=== PATIENT | female | born 1970 | race Caucasian/White ===

== ENCOUNTER 2019-10-04 11:23 | Outpatient (CLI) | payer MEDICAID, SELFPAY ==
--- NOTE | 2019-10-04 | MM_ITS ---
WS: [id number] BILATERAL SCREENING DIGITAL MAMMOGRAM WITH CAD HISTORY: SCREENING COMPARISON: None available. Bilateral CC and MLO views submitted. Computer aided detection analyzed. Breast composition: There are scattered areas of fibroglandular density. No suspicious masses, microc alcifications or architectural distortion. MM/[id number] IMPRESSION: BI-RADS: 1-Negative FOLLOW UP: 1 Year Follow-up
== END 2019-10-04 11:24 | disposition home or self-care (01) ==
LOC: RADSHAW 11:33
PROVIDERS: Family Provider Internal Medicine Medical Oncology; PCP Internal Medicine Medical Oncology; Visit Provider Internal Medicine Medical Oncology
DX: Z12.31 Encounter for screening mammogram for malignant neoplasm of breast (principal)
CPT/HCPCS: 77067

== ENCOUNTER 2019-12-02 12:58 | Outpatient (CLI) | payer MEDICAID, SELFPAY ==
[2019-12-02 14:36] LABS: Basophils % 0.3 %; Eosinophils # 0.1 10^3/uL (0.0-0.8); Eosinophils % 1.3 %; Hematocrit 48.1 % (37.0-47.0); Hemoglobin 14.3 g/dL (11.5-15.3); Lymphocytes # 1.1 10^3/uL (0.8-4.8); Lymphocytes % 14.6 %; Mean Corpuscular HGB Conc 29.7 g/dL (30.0-36.0); Mean Corpuscular Hemoglobin 26.7 pg (28.0-34.0); Mean Corpuscular Volume 89.9 fL (81-99); Mean Platelet Volume 12.3 fL (7.4-10.4); Monocytes # 0.6 10^3/uL (0.2-0.9); Monocytes % 7.4 %; Neutrophils # 5.8 10^3/uL (1.8-7.7); Neutrophils % 75.9 %; Nucleated Red Blood Cells % 0 %; Platelet Count 272 10^3/cmm (130-400); Red Blood Count 5.35 10^6/uL (4.1-5.3); Red Cell Distribution Width 15.6 % (12.1-15.1); White Blood Count 7.7 10^3/uL (4.0-10.0)
[2019-12-02 14:57] LABS: Alanine Aminotransferase < 5 U/L (0-33); Albumin Level 4.1 g/dL (3.5-5.2); Alkaline Phosphatase 122 IU/L (35-105); Anion Gap 16.1 (5-19); Aspartate Amino Transferase 9 U/L (0-32); Blood Urea Nitrogen 11 mg/dL (6-20); Calcium 9.8 mg/dL (8.5-10.5); Carbon Dioxide 24 mmol/L (22-29); Chloride 104 mmol/L (98-107); Globulin 2.5 g/dL (1.3-4.6); Glomerular Filtration Rate 105.8 mL/min (90-130); Glucose 258 mg/dL (65-115); Lactate Dehydrogenase 123 U/L (135-214); Potassium 4.1 mmol/L (3.5-5.1); Sodium 140 mmol/L (136-145); Total Bilirubin 0.4 mg/dL (0.15-1.2); Total Protein 6.6 g/dL (6.6-8.7)
[2019-12-03 09:45] LABS: Estmated Average Glucose 189; Hemoglobin A1C 8.2 % (4.0-6.0)
--- NOTE | 2019-12-04 08:36 | ONC FU_ITS ---
Dr. Canales Patient Follow-Up Note Patient: Kavitha Sue Unit #: [id number]: 1970 Dicatated By: Hi Canales M.D.Date of Visit:Dec 02, 2019 Onc Med Follow-up/Prog Note Chief Complaint: Thrombocytopenia/multisystem degeneration. History of Present Illness: This is a 48 year-old woman whom I previously treated for autoimmune thrombocytopenia. She had presented in 1999 with severe thrombocytopenia. She had a good response to treatment with RhoD and prednisone. She was able to taper off prednisone as of December 2002. During subsequent followup she had just one brief drop in her platelet count, but with spontaneous recovery. Beginning in the early part of 2009 she had a significant decline in her performance status associated with progressive neurologic symptoms. She was seen by Dr. 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 She has been on treatment with carbidopa/levodopa. She became very debilitated as a result of that illness. She has lived with her father, as she was no longer able to function independently. Her other medical illnesses include hypertension, type II diabetes, GERD, and chronic anxiety. She is a nonsmoker. She is seen for a followup visit. In November 2018 she suffered a distal radius and ulna fracture as result of a fall at home. She underwent open reduction and internal fixation for the fracture on 12/19/2018. Because of that injury, she had missed an appointment, and she did not get it rescheduled until now. She continues to have some pain in her left wrist, and she also complains that her hands get stiff. She has pain in her kneecaps. She has very limited activity, and she is mainly bed or chair confined. She does ambulate to the bathroom, but she requires a lift chair to get up. She has good appetite and she has gained weight. She does not have fever or hot flashes. She sometimes has a little sweating at night. She has shortness of breath and she has a hacking cough, mainly at night. She has a little bit of chest pain. She complains of having sour stomach. For the past week or so she has been having some pain in the right upper quadrant area. Bowel function has been adequate with a stool softener. She says her bladder is okay most of the time. She does not complain of headache. She does have dizziness, but not as much. She has no numbness/paresthesia or other focal neurologic symptoms. Medications: Carbidopa-Levodopa 1 Tablet (of 25-100 mg) Oral b.i.d., Cholecalciferol 1 (1000 Units) Tablet Oral daily, [facility] Omeprazole 1 Tablet (of 20 mg) Tablet, enteric coated Oral b.i.d., Metoprolol Tartrate 1 (50 mg) Tablet Oral b.i.d., Ondansetron HCl 1 Tablet (of 4 mg) Oral PRN, Xanax 1 (0.5 mg) Tablet Oral b.i.d. PRN Allergies: Cipro, NONSTEROIDAL ANTI-INFLAMMATORIES, Penicillin V Potassium, and Sulfamethoxazole-Trimethoprim. Review of Systems: Constitutional - Her energy is low. She is mainly sedentary at home. Her appetite is good and her weight is up 10 pounds since her last visit. She has sweating at night. No fever, chills, hot flashes. ECOG score is 3, ENMT - She has sinus congestion/drainage. No mouth sores. No sore throat or difficulty swallowing, Hematologic/Lymphatic - No abnormal bruising or bleeding, Respiratory - She has shortness of breath. She has a nonproductive cough at night. No pleuritic pain or hemoptysis, Cardiovascular - No angina pain. No palpitations, Gastrointestinal - She sometimes feels nauseous. No vomiting. No heartburn or acid reflux. She takes stool softeners to manage her bowels. No blood in the stool or black stools. She has some abdominal pain, Genitourinary (F) - No dysuria or hematuria. No urinary frequency. No urgency or incontinence, Musculoskeletal - She had a fall recently. She has pain in her knees. Her hands get stiff if she doesn't do her exercises, Integumentary - No skin complications, Neurologic - No headache or dizziness. No numbness/paresthesias or other focal neurologic symptoms, Psychiatric - No anxiety or depression. No insomnia. Vital Signs: Performed on Dec 02, 2019 13:08 Height - 64.00 in Weight - 162 lbs (HIGH) BSA - 1.79 sq.m BMI - 27.81 Temperature - 98.6 F Pulse - 80 /min Respiration - 16 /min BP - 124/76 mm(hg) O2 Sat - 95 % (LOW) Pain - 8 Physical Examination: Constitutional - She appears generally weak and chronically ill. She has poor mobility, Eyes - Sclerae nonicteric. Conjunctivae clear, ENMT - Mouth is dry. There are no lesions noted in the oral cavity, Hematologic/Lymphatic - No cervical, clavicular, or axillary adenopathy, Respiratory - Lungs are clear, Cardiovascular - Heart rhythm is regular. There is no murmur, gallop, or rub noted, Abdomen - Soft. Liver and spleen are not enlarged. There is no abdominal mass or ascites noted and there is no inguinal adenopathy, Extremities - No edema, Neurologic - She does not appear to have any focal neurologic deficit. Lab/Imaging: Test performed on Dec 02, 2019 14:15 LDH (Total) 123 U/L Sodium 140 mmol/L Potassium 4.1 mmol/L Chloride 104 mmol/L CO2 24 mmol/L Anion Gap 16.1 BUN 11 mg/dL Creatinine 0.6 mg/dL Cr Clearance (Est) 130.1300 mL/min eGFR 105.8 mL/min Glucose 258 mg/dL Calcium 9.8 mg/dL Protein, Total 6.6 g/dL Albumin 4.1 g/dL Globulin 2.5 g/dL Bilirubin, Total 0.4 mg/dL ALT (SGPT) < 5 U/L AST (SGOT) 9 U/L Alkaline Phosphatase 122 IU/L WBC 7.7 10 3/uL RBC 5.35 10 6/uL HGB 14.3 g/dL HCT 48.1 % MCV 89.9 fL MCH 26.7 pg MCHC 29.7 g/dL RDW 15.6 % Platelet Count 272 10 3/cmm MPV 12.3 fL Neutrophils 5.8 10 3/uL Lymphocytes 1.1 10 3/uL Monocytes 0.6 10 3/uL Eosinophils 0.1 10 3/uL Basophils 0.0 10 3/uL Neutrophil % 75.9 % Lymphocyte % 14.6 % Monocyte % 7.4 % Eosinophil % 1.3 % Basophils % 0.3 % Test performed on Dec 02, 2019 09:00 Hemoglobin A1C % 8.2 % Impression: 1. 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 2. During followup she developed a debilitating neurologic disorder, and she has been chronically ill. 3. I have suspected that she has some associated autonomic neuropathy. Her other medical illnesses include: 4. Hypertension. 5. Type II diabetes. 6. GERD. 7. Chronic anxiety. During followup there was no further recurrence of the autoimmune thrombocytopenia. She experienced a significant decline in her performance status related to the underlying neuromuscular disorder. In November 2018 she underwent open reduction/internal fixation for a left distal radius/ulnar fracture. As result of that injury, she had missed an appointment, and it did not get rescheduled until this visit. During this time, she apparently stopped taking Metformin with resulting increase in her hemoglobin A1c level. She has had further decline in her functional status related to multisystem degeneration. Plan: She remains on observation for the autoimmune thrombocytopenia. She will restart metformin 500 mg twice daily. Her other medications remain the same. I will see her again in 6 months, or sooner as needed. Signed By: Hi Canales M.D. <<Signature on File>>
== END 2019-12-02 12:59 | disposition home or self-care (01) ==
LOC: ONCMED 13:00
PROVIDERS: Family Provider Internal Medicine Medical Oncology; PCP Internal Medicine Medical Oncology; Visit Provider Internal Medicine Medical Oncology
DX: G23.2 Striatonigral degeneration (principal); G90.3 Multi-system degeneration of the autonomic nervous system; D69.3 Immune thrombocytopenic purpura; I10 Essential (primary) hypertension; E11.9 Type 2 diabetes mellitus without complications; K21.9 Gastro-esophageal reflux disease without esophagitis; F41.9 Anxiety disorder, unspecified; Z79.899 Other long term (current) drug therapy; Z79.84 Long term (current) use of oral hypoglycemic drugs
CPT/HCPCS: 80053; 83036; 83615; 85025; 99214

== ENCOUNTER → 2020-03-25 11:46 | Outpatient (BNVA) | payer MEDICAID, SELFPAY | PROVIDERS: Family Provider Internal Medicine Medical Oncology; PCP Internal Medicine Medical Oncology; Visit Provider Orthopaedic Surgery | DX: S52.502A Unspecified fracture of the lower end of left radius, initial encounter for closed fracture (principal); S52.602A Unspecified fracture of lower end of left ulna, initial encounter for closed fracture; X58.XXXA Exposure to other specified factors, initial encounter | CPT/HCPCS: 73110 ==

== ENCOUNTER 2020-06-15 13:25 | Outpatient (CLI) | payer MEDICAID, SELFPAY ==
[2020-06-15 14:35] LABS: Basophils % 0.2 %; Eosinophils # 0.2 10^3/uL (0.0-0.8); Eosinophils % 1.9 %; Hematocrit 47.5 % (37.0-47.0); Hemoglobin 14.1 g/dL (11.5-15.3); Mean Corpuscular HGB Conc 29.7 g/dL (30.0-36.0); Mean Corpuscular Hemoglobin 26.8 pg (28.0-34.0); Mean Corpuscular Volume 90.1 fL (81-99); Mean Platelet Volume 11.9 fL (7.4-10.4); Monocytes # 0.5 10^3/uL (0.2-0.9); Monocytes % 6.1 %; Neutrophils # 6.52 10^3/uL (1.8-7.7); Neutrophils % 79.2 %; Nucleated Red Blood Cells % 0 %; Platelet Count 265 10^3/cmm (130-400); Red Blood Count 5.27 10^6/uL (4.1-5.3); Red Cell Distribution Width 15.1 % (12.1-15.1); White Blood Count 8.2 10^3/uL (4.0-10.0)
[2020-06-15 14:57] LABS: Estmated Average Glucose 232; Hemoglobin A1C 9.7 % (4.0-6.0)
[2020-06-15 15:06] LABS: Alanine Aminotransferase < 5 U/L (0-33); Albumin Level 3.9 g/dL (3.5-5.2); Alkaline Phosphatase 110 IU/L (35-105); Anion Gap 17.1 (5-19); Aspartate Amino Transferase 12 U/L (0-32); Blood Urea Nitrogen 11 mg/dL (6-20); Calcium 8.6 mg/dL (8.5-10.5); Carbon Dioxide 22 mmol/L (22-29); Chloride 105 mmol/L (98-107); Globulin 2.4 g/dL (1.3-4.6); Glomerular Filtration Rate 130.1 mL/min (90-130); Glucose 325 mg/dL (65-115); Osmolality Calculated 299 mOsm/kg (285-295); Potassium 4.1 mmol/L (3.5-5.1); Sodium 140 mmol/L (136-145); Total Bilirubin 0.3 mg/dL (0.15-1.2); Total Protein 6.3 g/dL (6.6-8.7)
--- NOTE | 2020-06-19 18:42 | ONC FU_ITS ---
Dr. Canales Patient Follow-Up Note Patient: Kavitha Sue Unit #: [id number]: 1970 Dicatated By: Hi Canales M.D.Date of Visit:Jun 15, 2020 Onc Med Follow-up/Prog Note Chief Complaint: Thrombocytopenia/multisystem degeneration. History of Present Illness: This is a 49 year-old woman whom I previously treated for autoimmune thrombocytopenia. She had presented in 1999 with severe thrombocytopenia. She had a good response to treatment with RhoD and prednisone. She was able to taper off prednisone as of December 2002. During subsequent followup she had just one brief drop in her platelet count, but with spontaneous recovery. Beginning in the early part of 2009 she had a significant decline in her performance status associated with progressive neurologic symptoms. She was seen by Dr. 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 She has been on treatment with carbidopa/levodopa. She became very debilitated as a result of that illness. She has lived with her father, as she was no longer able to function independently. Her other medical illnesses include hypertension, type II diabetes, GERD, and chronic anxiety. In November 2018 she suffered a distal radius and ulna fracture as result of a fall at home. She underwent open reduction and internal fixation for the fracture on 12/19/2018. She is a nonsmoker. In December 2019 she was found to have type II diabetes with her hemoglobin A1c level significantly elelvated at 8.2%. She started treatment with metformin 500 mg bid. She is seen for a followup visit. She indicates she had stopped the metformin because of diarrhea, but she failed to report this to us. The diarrhea resolved. She has otherwise been feeling about the same. She has very limited activity. She can ambulate short distances with assistance, but she is mainly bed/wheel chair confined and she requires assistance for ADLs. Her appetite has been good. She has not had fever or night sweats. She occasionally has hot flashes. Her breathing has been OK. She has just a little bit of cough. She sometimes has sour stomach. Bowel function has been OK with stool softeners. Bladder function is better with medication. She has been having pain in her knee caps. She has no focal neurologic symtoms. Medications: Carbidopa-Levodopa 1 Tablet (of 25-100 mg) Oral t.i.d., Cholecalciferol 1 (1000 Units) Tablet Oral daily, [facility] Omeprazole 1 Tablet (of 20 mg) Tablet, enteric coated Oral daily, Metoprolol Tartrate 1 (50 mg) Tablet Oral b.i.d., Ondansetron HCl 1 Tablet (of 4 mg) Oral PRN, Xanax 1 (0.5 mg) Tablet Oral b.i.d. PRN Allergies: Cipro, NONSTEROIDAL ANTI-INFLAMMATORIES, Penicillin V Potassium, and Sulfamethoxazole-Trimethoprim. Review of Systems: Constitutional - She has very limited activity. She requires assistance with ADL's. Appetite is good and weight is stable. No fever or night sweats. She occasionally has hot flashes. ECOG score is 3, ENMT - No sinus congestion/drainage. No mouth sores. No sore throat or difficulty swallowing, Hematologic/Lymphatic - No abnormal bruising or bleeding, Respiratory - She occasionally has to take a deep breath. She has a little bit of cough. No pleuritic pain or hemoptysis, Cardiovascular - No angina pain. No palpitations, Gastrointestinal - No nausea or vomiting, but she sometimes has sour stomach. Her constipation is adequately managed. No blood in the stool or black stools, Genitourinary (F) - No dysuria or hematuria. She has urinary frequency, and she has urgency/incontinence, but her bladder function has improved with medication, Musculoskeletal - She has been having pain in her knee caps. She has no other joint or bone pain, Integumentary - No skin rash, Neurologic - No headache. She somtimes has dizziness. No numbness or tingling. No other focal neurologic symptoms, Psychiatric - No anxiety or depression. No insomnia. Vital Signs: Performed on Jun 15, 2020 13:35 Height - 64.00 in Weight - 160.0 lbs (LOW) BSA - 1.78 sq.m BMI - 27.46 Temperature - 98.0 F (LOW) Pulse - 92 /min Respiration - 20 /min BP - 129/86 mm(hg) O2 Sat - 97 % Pain - 7 Physical Examination: Constitutional - She appears generally weak and chronically ill, Eyes - Sclerae nonicteric. Conjunctivae clear, ENMT - Mouth is dry. There are no lesions noted in the oral cavity, Hematologic/Lymphatic - No cervical, clavicular, or axillary adenopathy, Respiratory - Lungs are clear, Cardiovascular - Heart rhythm is regular. There is no murmur, gallop, or rub noted, Abdomen - Soft. Liver and spleen are not enlarged. There is no abdominal mass or ascites noted and there is no inguinal adenopathy, Extremities - No edema, Neurologic - She has poor mobility. She does not appear to have any focal neurologic deficit. Lab/Imaging: Test performed on Jun 15, 2020 14:10 Sodium 140 mmol/L Potassium 4.1 mmol/L Chloride 105 mmol/L CO2 22 mmol/L Anion Gap 17.1 BUN 11 mg/dL Creatinine 0.5 mg/dL Cr Clearance (Est) 152.5100 mL/min eGFR 130.1 mL/min Glucose 325 mg/dL Calcium 8.6 mg/dL Osmolality - Calculated 299 mOsm/kg Protein, Total 6.3 g/dL Albumin 3.9 g/dL Globulin 2.4 g/dL Bilirubin, Total 0.3 mg/dL ALT (SGPT) < 5 U/L AST (SGOT) 12 U/L Alkaline Phosphatase 110 IU/L Hemoglobin A1C % 9.7 % WBC 8.2 10 3/uL RBC 5.27 10 6/uL HGB 14.1 g/dL HCT 47.5 % MCV 90.1 fL MCH 26.8 pg MCHC 29.7 g/dL RDW 15.1 % Platelet Count 265 10 3/cmm MPV 11.9 fL Neutrophils 6.52 10 3/uL Lymphocytes 1.0 10 3/uL Monocytes 0.5 10 3/uL Eosinophils 0.2 10 3/uL Basophils 0.0 10 3/uL Neutrophil % 79.2 % Lymphocyte % 12.0 % Monocyte % 6.1 % Eosinophil % 1.9 % Basophils % 0.2 % NRBC % 0 % Impression: 1. 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 2. During followup she developed a debilitating neurologic disorder, and she has been chronically ill. 3. I have suspected that she has some associated autonomic neuropathy. Her other medical illnesses include: 4. Hypertension. 5. Type II diabetes. 6. GERD. 7. Chronic anxiety. During followup there was no further recurrence of the autoimmune thrombocytopenia. She experienced a significant decline in her performance status related to the underlying neuromuscular disorder. In November 2018 she underwent open reduction/internal fixation for a left distal radius/ulnar fracture. During subsequent follow-up she has been stable clinically, but she has elevated hemoglobin A1c level, consistent with type 2 diabetes, and she was not able to tolerate metformin due to diarrhea. Plan: She remains on observation for the autoimmune thrombocytopenia. She will start glyburide 5 mg bid for the diabetes. Her other medications remain the same. I will recheck lab studies in 3 months. I will see her again in 6 months, or sooner as needed. Signed By: Hi Canales M.D. <<Signature on File>>
== END 2020-06-15 13:26 | disposition home or self-care (01) ==
PROVIDERS: Visit Provider Internal Medicine Medical Oncology
DX: D69.3 Immune thrombocytopenic purpura (principal); G23.2 Striatonigral degeneration; I10 Essential (primary) hypertension; E11.9 Type 2 diabetes mellitus without complications; K21.9 Gastro-esophageal reflux disease without esophagitis; F41.9 Anxiety disorder, unspecified
CPT/HCPCS: 80053; 83036; 85025; 99214

== ENCOUNTER 2020-08-10 12:19 | Outpatient (CLI) | payer MEDICAID, SELFPAY ==
[2020-08-10] MEDS: pneumococcal (23 valent) SDV 0.5 mL IM (12:20)
== END 2020-08-10 12:20 | disposition home or self-care (01) ==
LOC: ONCMED 12:22
PROVIDERS: Visit Provider Internal Medicine Medical Oncology
DX: Z23 Encounter for immunization (principal)
CPT/HCPCS: 90471; 90686; 90732

== ENCOUNTER 2020-12-10 12:02 | Outpatient (CLI) | payer MEDICAID, SELFPAY ==
[2020-12-10 15:32] LABS: Basophils % 0.3 %; Eosinophils # 0.1 10^3/uL (0.0-0.8); Eosinophils % 1.8 %; Hematocrit 48.4 % (37.0-47.0); Hemoglobin 14.3 g/dL (11.5-15.3); Lymphocytes # 0.9 10^3/uL (0.8-4.8); Lymphocytes % 13.8 %; Mean Corpuscular HGB Conc 29.5 g/dL (30.0-36.0); Mean Corpuscular Hemoglobin 26.9 pg (28.0-34.0); Mean Corpuscular Volume 91.1 fL (81-99); Mean Platelet Volume 12.8 fL (7.4-10.4); Monocytes # 0.5 10^3/uL (0.2-0.9); Monocytes % 6.6 %; Neutrophils # 5.26 10^3/uL (1.8-7.7); Neutrophils % 76.9 %; Nucleated Red Blood Cells % 0 %; Platelet Count 256 10^3/cmm (130-400); Red Blood Count 5.31 10^6/uL (4.1-5.3); Red Cell Distribution Width 14.9 % (12.1-15.1); White Blood Count 6.8 10^3/uL (4.0-10.0)
[2020-12-10 15:44] LABS: Estmated Average Glucose 174; Hemoglobin A1C 7.7 % (4.0-6.0)
[2020-12-10 16:17] LABS: Alanine Aminotransferase < 5 U/L (0-33); Albumin Level 3.4 g/dL (3.5-5.2); Alkaline Phosphatase 109 IU/L (35-105); Aspartate Amino Transferase 12 U/L (0-32); Blood Urea Nitrogen 16 mg/dL (6-20); Calcium 8.9 mg/dL (8.5-10.5); Carbon Dioxide 24 mmol/L (22-29); Chloride 103 mmol/L (98-107); Globulin 2.5 g/dL (1.3-4.6); Glucose 203 mg/dL (65-115); Osmolality Calculated 295 mOsm/kg (285-295); Sodium 139 mmol/L (136-145); Thyroid Stimulating Hormone 2.52 uIU/mL (0.27-4.20); Total Bilirubin 0.3 mg/dL (0.15-1.2); Total Protein 5.9 g/dL (6.6-8.7)
== END 2020-12-10 12:03 | disposition home or self-care (01) ==
LOC: ONCMED 12-11 07:59
PROVIDERS: Visit Provider Internal Medicine Medical Oncology
DX: D69.6 Thrombocytopenia, unspecified (principal); E11.9 Type 2 diabetes mellitus without complications; R53.83 Other fatigue
CPT/HCPCS: 80053; 83036; 84443; 85025

== ENCOUNTER 2020-12-14 06:04 | Outpatient (CLI) | payer MEDICAID, SELFPAY ==
--- NOTE | 2020-12-16 07:20 | ONC FU_ITS ---
Dr. Canales Patient Follow-Up Note Patient: Kavitha Sue Unit #: [id number]: 1970 Dicatated By: Hi Canales M.D.Date of Visit:Dec 14, 2020 Onc Med Follow-up/Prog Note Chief Complaint: Thrombocytopenia/multisystem degeneration. History of Present Illness: This is a 50 year-old woman whom I previously treated for autoimmune thrombocytopenia. She had presented in 1999 with severe thrombocytopenia. She had a good response to treatment with RhoD and prednisone. She was able to taper off prednisone as of December 2002. During subsequent followup she had just one brief drop in her platelet count, but with spontaneous recovery. Beginning in the early part of 2009 she had a significant decline in her performance status associated with progressive neurologic symptoms. She was seen by Dr. 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 She has been on treatment with carbidopa/levodopa. She became very debilitated as a result of that illness. She has lived with her father, as she was no longer able to function independently. Her other medical illnesses include hypertension, type II diabetes, GERD, and chronic anxiety. In November 2018 she suffered a distal radius and ulna fracture as result of a fall at home. She underwent open reduction and internal fixation for the fracture on 12/19/2018. She is a nonsmoker. She is seen for a followup visit. She continues to have very limited activity. She ambulates short distances with a walker, but she is mostly sedentary. Her ECOG score is 3. Her appetite has been okay. She has not had fever or night sweats. She has occasional hot flashes. She has not had sore mouth or throat and she reports no difficulty swallowing. She has occasional cough and she sometimes has shortness of breath. She does not complain of chest pain. She tends to have a sour stomach. Bowel function has been adequate with stool softeners. Her bladder function lately has been okay. She does report that her joints hurt, especially her knees. She does not complain of headache or dizziness. She has a little bit of numbness/tingling in her feet. Medications: Carbidopa-Levodopa 1 Tablet (of 25-100 mg) Oral t.i.d., Cholecalciferol 1 (1000 Units) Tablet Oral daily, [facility] Omeprazole 1 Tablet (of 20 mg) Tablet, enteric coated Oral daily, Metoprolol Tartrate 1 (50 mg) Tablet Oral b.i.d., Ondansetron HCl 1 Tablet (of 4 mg) Oral PRN, Xanax 1 (0.5 mg) Tablet Oral b.i.d. PRN Allergies: Cipro, NONSTEROIDAL ANTI-INFLAMMATORIES, Penicillin V Potassium, and Sulfamethoxazole-Trimethoprim. Vital Signs: Performed on Dec 14, 2020 14:31 Height - 64.00 in Weight - 149.4 lbs (LOW) BSA - 1.73 sq.m BMI - 25.64 Temperature - 98.2 F (LOW) Pulse - 84 /min Respiration - 18 /min BP - 126/83 mm(hg) O2 Sat - 95 % (LOW) Pain - 0 Fatigue - 5 Physical Examination: Constitutional - She appears chronically ill, Eyes - Sclerae nonicteric. Conjunctivae clear, ENMT - Mouth is dry. There are no lesions noted in the oral cavity, Hematologic/Lymphatic - No cervical, clavicular, or axillary adenopathy, Respiratory - Lungs sound clear, Cardiovascular - Heart rhythm is regular. There is a II/ systolic murmur. There is no gallop or rub noted, Abdomen - Soft. Liver and spleen are not enlarged. There is no abdominal mass or ascites noted and there is no inguinal adenopathy, Extremities - No edema, Neurologic - She is generally weak and she has poor mobility. She does not appear to have any focal neurologic deficit. Lab/Imaging: Test performed on Dec 10, 2020 12:02 Sodium 139 mmol/L TSH 2.52 uIU/mL Potassium 4.0 mmol/L Chloride 103 mmol/L Est Avg Glucose (eAG) 174 mg/dL CO2 24 mmol/L Anion Gap 16.0 BUN 16 mg/dL Creatinine 0.6 mg/dL Cr Clearance (Est) 125.6600 mL/min eGFR 105.0 mL/min Glucose 203 mg/dL Osmolality - Calculated 295 mOsm/kg Calcium 8.9 mg/dL Protein, Total 5.9 g/dL Albumin 3.4 g/dL Globulin 2.5 g/dL Bilirubin, Total 0.3 mg/dL ALT (SGPT) < 5 U/L AST (SGOT) 12 U/L Alkaline Phosphatase 109 IU/L Hemoglobin A1C % 7.7 % WBC 6.8 10 3/uL RBC 5.31 10 6/uL HGB 14.3 g/dL HCT 48.4 % MCV 91.1 fL MCH 26.9 pg MCHC 29.5 g/dL RDW 14.9 % Platelet Count 256 10 3/cmm MPV 12.8 fL Neutrophils 5.26 10 3/uL Lymphocytes 0.9 10 3/uL Monocytes 0.5 10 3/uL Eosinophils 0.1 10 3/uL Basophils 0.0 10 3/uL Neutrophil % 76.9 % Lymphocyte % 13.8 % Monocyte % 6.6 % Eosinophil % 1.8 % Basophils % 0.3 % NRBC % 0 % Problem List: 1. 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 2. 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 3. Hypertension. 4. Type II diabetes. 5. GERD. 6. Chronic anxiety. Problems Addressed with this Encounter and Plan: 1. 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 She remains on observation for the autoimmune thrombocytopenia. 2. During followup she developed a debilitating neurologic disorder, and she has been chronically ill. 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 I have suspected that she also has some associated autonomic neuropathy. She has been on symptomatic management with carbidopa/levodopa. She has continued to show gradual decline in her general condition. She remains on symptomatic management in the care of her father. I will see her for a follow-up visit in 6 months, or sooner as needed. 3. Hypertension. She has had good blood pressure control with metoprolol, which she will continue at 50 mg twice daily. 4. Type 2 diabetes. Her hemoglobin A1c is just slightly high, and it is trending downward. She has been on treatment with glyburide, she had poor tolerance for Metformin, even at a relatively low dosage. She will continue glyburide 5 mg twice daily. Her hemoglobin A1c will be repeated in 3 months. Signed By: Hi Canales M.D. <<Signature on File>>
== END 2020-12-14 06:05 | disposition home or self-care (01) ==
LOC: ONCMED 06:06
PROVIDERS: Visit Provider Internal Medicine Medical Oncology
DX: D69.3 Immune thrombocytopenic purpura (principal); G90.3 Multi-system degeneration of the autonomic nervous system; I10 Essential (primary) hypertension; E11.9 Type 2 diabetes mellitus without complications; Z79.52 Long term (current) use of systemic steroids; Z79.84 Long term (current) use of oral hypoglycemic drugs
CPT/HCPCS: 99214

== ENCOUNTER 2021-04-13 13:58 | Outpatient (CLI) | payer MEDICAID, SELFPAY ==
--- NOTE | 2021-04-13 14:03 | MM_ITS ---
WS: [id number] BILATERAL DIGITAL SCREENING MAMMOGRAPHY WITH CAD CLINICAL INFORMATION: SCREENING HISTORY: Screening mammogram. No current complaints. COMPARISON: October 04, 2019 TECHNIQUE: Bilateral CC and MLO views. FINDINGS: Scattered fibroglandular densities bilaterally. Stable lucent centered calcifications. No suspicious focal mass, asymmetry, calcifications, or architectural distortion. No evidence of malignancy. MM/[id number] IMPRESSION: BI-RADS: 2-Benign FOLLOW UP: 1 Year Follow-up Recommend return to annual screening mammography.
== END 2021-04-13 13:59 | disposition home or self-care (01) ==
LOC: RADSHAW 14:02
PROVIDERS: Visit Provider Internal Medicine Medical Oncology
DX: Z12.31 Encounter for screening mammogram for malignant neoplasm of breast (principal)
CPT/HCPCS: 77067

== ENCOUNTER → 2021-06-15 11:33 | Outpatient (BNVA) | payer MEDICAID, SELFPAY | PROVIDERS: Visit Provider Internal Medicine Medical Oncology | DX: D69.3 Immune thrombocytopenic purpura (principal); G23.2 Striatonigral degeneration | CPT/HCPCS: 80053; 85025 ==

== ENCOUNTER 2021-06-16 12:33 | Outpatient (CLI) | payer MEDICAID, SELFPAY ==
[2021-06-16 14:40] LABS: Estmated Average Glucose 183
--- NOTE | 2021-06-16 19:28 | ONC FU_ITS ---
Dr. Canales Patient Follow-Up Note Patient: Kavitha Sue Unit #: [id number]: 1970 Dicatated By: Hi Canales M.D.Date of Visit:Jun 16, 2021 Onc Med Follow-up/Prog Note Chief Complaint: Thrombocytopenia/multisystem degeneration. History of Present Illness: This is a 50 year-old woman whom I previously treated for autoimmune thrombocytopenia. During follow-up she developed a neurologic disorder consistent with multisystem degeneration. She had presented in 1999 with severe thrombocytopenia. She had a good response to treatment with RhoD and prednisone. She was able to taper off prednisone as of December 2002. During subsequent followup she had just one brief drop in her platelet count, but with spontaneous recovery. Beginning in the early part of 2009 she had a significant decline in her performance status associated with progressive neurologic symptoms. She was seen by Dr. 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 She has been on treatment with carbidopa/levodopa. She became very debilitated as a result of that illness. She has lived with her father, as she was no longer able to function independently. Her other medical illnesses include hypertension, type II diabetes, GERD, and chronic anxiety. In November 2018 she suffered a distal radius and ulna fracture as result of a fall at home. She underwent open reduction and internal fixation for the fracture on 12/19/2018. She is a nonsmoker. She is seen for a followup visit. She has not been feeling good generally. She says she is tired by afternoon. She continues to have very limited activity, and she has only minimal ambulation at this point. She complains that her kneecaps hurt a lot, and she also has been having pain in both hips, starting in the right hip and then moving to the left. Her ECOG score is 3. She still has good appetite. She has not had fever or night sweats. She occasionally has hot flashes. She has some sinus drainage and she thinks she may have a bad tooth. She sometimes has cough. Her breathing has been okay, and she has not been having chest pain. She has no GI complaints. Bowel function has been adequate with a stool softener. Her bladder function is better. She does not complain of headache or dizziness. She occasionally has numbness in her feet. Medications: Carbidopa-Levodopa 1 Tablet (of 25-100 mg) Oral t.i.d., Cholecalciferol 1 (1000 Units) Tablet Oral daily, [facility] Omeprazole 1 Tablet (of 20 mg) Tablet, enteric coated Oral daily, glyBURIDE 1 Tablet (of 5 mg) Oral b.i.d., Metoprolol Tartrate 1 (50 mg) Tablet Oral b.i.d., Ondansetron HCl 1 Tablet (of 4 mg) Oral PRN, Xanax 1 (0.5 mg) Tablet Oral b.i.d. PRN Allergies: Cipro, NONSTEROIDAL ANTI-INFLAMMATORIES, Penicillin V Potassium, and Sulfamethoxazole-Trimethoprim. Vital Signs: Performed on Jun 16, 2021 13:13 Height - 64.00 in Temperature - 97.2 F (LOW) Pulse - 76 /min Respiration - 18 /min BP - 122/88 mm(hg) O2 Sat - 99 % Pain - 6 Fatigue - 0 Physical Examination: Constitutional - She appears chronically ill, Eyes - Sclerae nonicteric. Conjunctivae clear, ENMT - No lesions noted in the oral cavity, Hematologic/Lymphatic - No cervical, clavicular, or axillary adenopathy, Respiratory - Lungs sound clear, Cardiovascular - Heart rhythm is regular. There is a II/ systolic murmur. There is no gallop or rub noted, Abdomen - Soft. Liver and spleen are not enlarged. There is no abdominal mass or ascites noted and there is no inguinal adenopathy, Extremities - No edema. 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 She does not appear to have any focal neurologic deficit. Lab/Imaging: CBC shows hemoglobin 13.8 g, white blood cell count 7400, and platelet count 267,000. Comprehensive metabolic profile is unremarkable except for elevated nonfasting blood sugar 219 mg/dL. Her hemoglobin A1c has increased slightly to 8.0%. Problem List: 1. 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 2. 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 3. Hypertension. 4. Type II diabetes. 5. GERD. 6. Chronic anxiety. Problems Addressed with this Encounter and Plan: 1. 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 She remains on observation for the autoimmune thrombocytopenia. 2. 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 By clinical evaluation she also appeared to have some associated autonomic neuropathy. She has been on symptomatic management with carbidopa/levodopa. She has had a gradual decline in her general condition to the point that she now is virtually nonambulatory. She remains on symptomatic management with carbidopa/levodopa. The dosage remains the same. I will see her for a follow-up visit in 6 months. 3. Hypertension. She has had good blood pressure control with metoprolol, which she will continue at 50 mg twice daily. 4. Type 2 diabetes. Her hemoglobin A1c has increased since her last visit. She will require further adjustment in her treatment regimen. Signed By: Hi Canales M.D. <<Signature on File>>
== END 2021-06-16 12:34 | disposition home or self-care (01) ==
LOC: ONCMED 12:37
PROVIDERS: Visit Provider Internal Medicine Medical Oncology
DX: D69.6 Thrombocytopenia, unspecified (principal); G90.3 Multi-system degeneration of the autonomic nervous system; I10 Essential (primary) hypertension; E11.9 Type 2 diabetes mellitus without complications; K21.9 Gastro-esophageal reflux disease without esophagitis; F41.8 Other specified anxiety disorders; Z79.899 Other long term (current) drug therapy; Z79.84 Long term (current) use of oral hypoglycemic drugs
CPT/HCPCS: 83036; 99214

== ENCOUNTER → 2021-12-14 11:03 | Outpatient (BNVA) | payer MEDICAID, SELFPAY | PROVIDERS: Visit Provider Internal Medicine Medical Oncology | DX: D69.3 Immune thrombocytopenic purpura (principal); G23.2 Striatonigral degeneration; I10 Essential (primary) hypertension | CPT/HCPCS: 80053; 83036; 85025 ==

== ENCOUNTER 2021-12-15 13:12 | Outpatient (CLI) | payer MEDICAID, SELFPAY ==
--- NOTE | 2021-12-17 09:40 | ONC FU_ITS ---
Dr. Canales Patient Follow-Up Note Patient: Kavitha Sue Unit #: [id number]: 1970 Dicatated By: Hi Canales M.D.Date of Visit:Dec 15, 2021 Onc Med Follow-up/Prog Note Chief Complaint: Thrombocytopenia/multisystem degeneration. History of Present Illness: This is a 51 year-old woman whom I previously treated for autoimmune thrombocytopenia. During follow-up she developed a neurologic disorder consistent with multisystem degeneration. She had presented in 1999 with severe thrombocytopenia. She had a good response to treatment with RhoD and prednisone. She was able to taper off prednisone as of December 2002. During subsequent followup she had just one brief drop in her platelet count, but with spontaneous recovery. Beginning in the early part of 2009 she had a significant decline in her performance status associated with progressive neurologic symptoms. She was seen by Dr. 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 She has been on treatment with carbidopa/levodopa. She became very debilitated as a result of that illness. She has lived with her father, as she was no longer able to function independently. Her other medical illnesses include hypertension, type II diabetes, GERD, and chronic anxiety. In November 2018 she suffered a distal radius and ulna fracture as result of a fall at home. She underwent open reduction and internal fixation for the fracture on 12/19/2018. She is a nonsmoker. She is seen for a followup visit. She has been feeling a little better lately, though she continues to have very limited activity. ECOG score is 3. She has good appetite. She has no fever, night sweats, or hot flashes. She has not had sore mouth or throat. She has just occasional cough. She does have some shortness of breath, but her breathing overall is better. She still occasionally has chest pain. She currently has no GI complaints. Bowel function has been adequate with a stool softener. Bladder function also has been okay. She has pain in both knees, which is chronic. She does not complain of headache. She reports improvement in her dizziness. She has no numbness/paresthesia or other focal neurologic symptoms. Medications: Carbidopa-Levodopa 1 Tablet (of 25-100 mg) Oral t.i.d., Cholecalciferol 1 (1000 Units) Tablet Oral daily, [facility] Omeprazole 1 Tablet (of 20 mg) Tablet, enteric coated Oral daily, glyBURIDE 1 Tablet (of 7.5 mg) Oral b.i.d., Metoprolol Tartrate 1 (50 mg) Tablet Oral b.i.d., Ondansetron HCl 1 Tablet (of 4 mg) Oral PRN, Xanax 1 (0.5 mg) Tablet Oral b.i.d. PRN Allergies: Cipro, NONSTEROIDAL ANTI-INFLAMMATORIES, Penicillin V Potassium, and Sulfamethoxazole-Trimethoprim. Vital Signs: Performed on Dec 15, 2021 13:35 Height - 64.00 in Weight - 140.4 lbs (LOW) BSA - 1.68 sq.m BMI - 24.10 Temperature - 98.1 F (LOW) Pulse - 80 /min Respiration - 16 /min BP - 129/82 mm(hg) O2 Sat - 99 % Pain - 6 Fatigue - 6 Physical Examination: Constitutional - She appears chronically ill, Eyes - Sclerae nonicteric. Conjunctivae clear, ENMT - No lesions noted in the oral cavity, Hematologic/Lymphatic - No cervical, clavicular, or axillary adenopathy, Respiratory - Lungs sound clear, Cardiovascular - Heart rhythm is regular. There is a II/ systolic murmur. There is no gallop or rub noted, Abdomen - Soft. Liver and spleen are not enlarged. There is no abdominal mass or ascites noted and there is no inguinal adenopathy, Extremities - There is mild lower extremity edema, worse on the left. 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 She does not appear to have any focal neurologic deficit. Lab/Imaging: CBC shows hemoglobin of 15.2 g with hematocrit 50.8%. The white blood cell count was 5200 and the platelet count was normal at 253,000. Comprehensive metabolic profile showed normal renal function with BUN 12 and creatinine 0.5 mg/dL. The alkaline phosphatase was slightly elevated at 109/105 IU/L. The bilirubin and the other liver enzymes were normal. Hemoglobin A1c level was up slightly at 8.2%. Problem List: 1. 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 2. 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 3. Hypertension. 4. Type II diabetes. 5. GERD. 6. Chronic anxiety. Problems Addressed with this Encounter and Plan: 1. 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 She remains on observation for the autoimmune thrombocytopenia. 2. 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 By clinical evaluation she also appeared to have some associated autonomic neuropathy. She has been on symptomatic management with carbidopa/levodopa. She has had a gradual decline in her general condition to the point that she now is virtually nonambulatory. She remains on symptomatic management with carbidopa/levodopa. The dosage remains the same. I will see her for a follow-up visit in 6 months. 3. Hypertension. She has had good blood pressure control with metoprolol, which she will continue at 50 mg twice daily. 4. Type 2 diabetes. There has a slight further increase in her hemoglobin A1c, and she will require further adjustment in her treatment regimen. Signed By: Hi Canales M.D. <<Signature on File>>
== END 2021-12-15 13:13 | disposition home or self-care (01) ==
LOC: ONCMED 13:17
PROVIDERS: Visit Provider Internal Medicine Medical Oncology
DX: D69.3 Immune thrombocytopenic purpura (principal); I10 Essential (primary) hypertension; E11.9 Type 2 diabetes mellitus without complications; G32.0 Subacute combined degeneration of spinal cord in diseases classified elsewhere; K21.9 Gastro-esophageal reflux disease without esophagitis; F41.9 Anxiety disorder, unspecified; Z79.52 Long term (current) use of systemic steroids; Z79.899 Other long term (current) drug therapy
CPT/HCPCS: 99214

== ENCOUNTER → 2022-01-25 13:12 | Outpatient (BNVA) | payer MEDICAID, SELFPAY | PROVIDERS: PCP Internal Medicine Medical Oncology; Referring Provider Internal Medicine Medical Oncology; Visit Provider Surgery | DX: Z12.11 Encounter for screening for malignant neoplasm of colon (principal) | CPT/HCPCS: 99203 ==

== ENCOUNTER → 2022-06-22 10:53 | Outpatient (BNVA) | payer MEDICAID, SELFPAY | PROVIDERS: PCP Internal Medicine Medical Oncology; Visit Provider Nurse Practitioner | DX: E11.65 Type 2 diabetes mellitus with hyperglycemia (principal) | CPT/HCPCS: 80053; 80061; 81003; 83036; 84443; 85025 ==

== ENCOUNTER 2022-09-19 14:02 | Outpatient (CLI) | payer MEDICAID, SELFPAY ==
--- NOTE | 2022-09-19 14:06 | MM_ITS ---
WS: [id number] BILATERAL 2D TOMOSYNTHESIS DIGITAL SCREENING MAMMOGRAPHY WITH CAD CLINICAL INFORMATION: SCREENING HISTORY: Screening mammogram. No current complaints. COMPARISON: April 13, 2021 and 2019 TECHNIQUE: Bilateral CC and MLO views. FINDINGS: Scattered fibroglandular densities bilaterally. Increasing asymmetric density upper outer LEFT breast best seen on the MLO view. Recommend spot compression views and ultrasound if persistent in further evaluation. RIGHT breast is unremarkable and unchanged. MM/[id number] IMPRESSION: BI-RADS: 0-Incomplete: Need additional imaging evaluation FOLLOW UP: Need Additional Imaging Recommend LEFT breast diagnostic mammography with spot compression views and ul trasound if persistent.
== END 2022-09-19 14:03 | disposition home or self-care (01) ==
LOC: RAD 14:02
PROVIDERS: PCP Nurse Practitioner; Visit Provider Nurse Practitioner
DX: Z12.31 Encounter for screening mammogram for malignant neoplasm of breast (principal)
CPT/HCPCS: 77067

== ENCOUNTER 2022-10-14 14:38 | Outpatient (CLI) | payer MEDICAID, SELFPAY ==
--- NOTE | 2022-10-14 14:49 | MM_ITS ---
WS: [id number] LEFT 3D TOMOSYNTHESIS DIGITAL MAMMOGRAPHY WITH CAD CLINICAL INFORMATION: R92.2 - Inconclusive mammogra COMPARISON: April 13, 2021 TECHNIQUE: 3 views of the left breast were obtained. FINDINGS: Scattered fibroglandular densities of the left breast. Again seen is the slightly spiculated asymmetr ic density upper quadrant LEFT breast posterior depth. This persists on spot compression views. Ultra sound is pending. ULTRASOUND BREAST LEFT TECHNIQUE: Ultrasound left breast focused area of concern. CLINICAL INFORMATION: R92.2 - Inconclusive mammogram FINDINGS: Ultrasound LEFT breast 2:00 position demonstrates an irregular hypoechoic shadowing lesion with a anahi id appearance measuring 1.1 x 1.1 x 0.8 cm suspicious for neoplasm. This is 6 cm from the nipple. Rec ommend further evaluation with ultrasound-guided biopsy. No other abnormalities. IMPRESSION: MM/[id number] BI-RADS: 4-Suspicious Finding-Biopsy Should Be Considered FOLLOW UP: US Guided Biopsy Recommended Recommend ultrasound-guided biopsy irregular solid LEFT breast lesion
== END 2022-10-14 14:39 | disposition home or self-care (01) ==
LOC: RAD 14:38
PROVIDERS: PCP Nurse Practitioner; Visit Provider Nurse Practitioner
DX: R92.2 Inconclusive mammogram (principal); N64.9 Disorder of breast, unspecified
CPT/HCPCS: 76642; 77065

== ENCOUNTER → 2022-11-23 08:52 | Outpatient (BNVA) | payer MEDICAID, SELFPAY | PROVIDERS: PCP Nurse Practitioner; Visit Provider Nurse Practitioner | DX: E11.65 Type 2 diabetes mellitus with hyperglycemia (principal); E55.9 Vitamin D deficiency, unspecified | CPT/HCPCS: 80053; 80061; 82306; 83036; 85025 ==

== ENCOUNTER 2022-12-13 20:51 | Emergency (ER) | payer MEDICAID, SELFPAY ==
[2022-12-13 20:54] VITALS: BMI 25.7
--- NOTE | 2022-12-13 20:54 | ED_ITS ---
HPI - Chest Pain General: Chief Complaint: Chest Pain Stated Complaint: CP Time Seen by Provider: 12/13/22 20:54 History of Present Illness: Ms. Sue is a 52-year-old lady with complex past medical history including autoimmune thrombocytopenia history, diabetes, Parkinson's presenting to the emergency department for chest pain. She reports onset of symptoms approximately 2 hours ago while eating though denies any specific choking event or provoking event. She notes substernal chest pain associated with nausea and diaphoresis. EMS administered Zofran and fentanyl with some improvement. Intensity symptoms is moderate. Course has persisted. Does report history of similar. No other specific changes in health, exacerbating, or alleviating factors identified. Onset (ago): hour(s) Timing of current episode: constant Prior episodes: Yes Onset: after eating Pain location: substernal Severity: moderate Quality: heaviness and sharp Relieving factors: nothing Exacerbating factors: nothing Associated symptoms: Reports diaphoresis, dyspnea and nausea Review of Systems General: Reports: 10 or more systems reviewed and unremarkable except in HPI and below Const: Reports: diaphoresis Resp: Reports: dyspnea GI: Reports: nausea PFSH ED PFSH: Medical History Anxiety Autoimmune thrombocytopenia Bradykinesia Closed fracture distal radius and ulna DOS: 12/19/18 ORIF left distal radius and ORIF with percutaneous pinning ulnar styloid Constipation, slow transit Diabetes mellitus with hyperglycemia Hyperglycemia Multi-system degeneration of autonomic nervous system Parkinson disease Surgical History History of surgery on left wrist Family History Other Cancer Chronic kidney disease (CKD) Diabetes Family history of premature coronary artery disease Hypertension Denies family history of Stroke Social History Smoking and tobacco status: never smoked Second hand smoke exposure: No Smoking risk assessment/counseling performed?: No Alcohol intake: never Desire information about alcohol rehabilitation?: No Counseling given: No Desire information about substance/drug rehabilitation?: No Counseling given: No Adopted: No Caregiver/support person: Yes (Dad and Brother) Lives independently: No Housing: Assisted Living Facility Marital status: Number of children: 0 Number of grandchildren: 0 Highest education level completed: High School Graduate service: No Current occupational status: disabled Current occupational exposures/hazards: No Pets and animals: Yes Pets & animals: cat(s) Current gender identity: Female Physical Exam Const: COMMON NORMALS: alert GENERAL APPEARANCE: cooperative and well developed HENMT: COMMON NORMALS: normocephalic and atraumatic HEAD & SCALP: normocephalic and atraumatic THROAT: posterior oropharynx normal Eye: COMMON NORMALS: conjunctivae normal CONJUNCTIVA: Yes conjunctivae normal SCLERA: sclerae normal Neck/C-Spine: COMMON NORMALS: supple GENERAL: Yes trachea midline Resp: COMMON NORMALS: clear to auscultation bilaterally EFFORT & INSPECTION: Yes able to speak in complete sentences AUSCULTATION: clear to auscultation bilaterally Cardio: COMMON NORMALS: regular rate and regular rhythm RATE: regular rate RHYTHM: regular rhythm GI: COMMON NORMALS: Soft to palpation PALPATION: Yes Soft to palpation and No Tenderness to palpation present (GI) Extremity: GENERAL: Yes normal exam except as noted and No edema Neuro: COMMON NORMALS: moves all extremities SENSORIUM/ORIENTATION: Yes alert and No Orientation impaired Psych: COMMON NORMALS: mental status grossly normal and Normal thought process present THOUGHT PROCESS: Normal thought process present Course Vital Signs: Vital signs: Vital Signs Temperature 97.6 F 12/13/22 21:03 Pulse Rate 109 H 12/14/22 00:45 Respiratory Rate 16 12/14/22 00:45 Blood Pressure 124/85 12/14/22 00:45 Pulse Oximetry 99 12/14/22 00:45 Oxygen Delivery Me thod 12/14/22 00:45 MDM - Chest Pain Medical Decision Making 52-year-old lady with history of diabetes presenting to the emergency department for chest pain. EKG demonstrates sinus tachycardia with nonspecific ST segment abnormalities and short MA interval, normal axis, no STEMI. Labs with only minimal leukocytosis, normal hemoglobin and platelet count. Metabolic panel with perhaps minimal evidence of dehydration. Negative range 2- hour delta troponin. Chest x-ray with mild pulmonary vascular congestion, no lobar consolidation or pneumothorax. Most likely etiology of patient's symptoms is unspecified chest pain. The results of ED evaluation were discussed with the patient including possible disposition options. I discussed risk stratification by heart score and estimated risk of major adverse cardiac events. The patient wishes to proceed with outpatient management. She does not want to have a stress test and therefore I will message case management for cardiology follow-up instead for further discussion regarding testing. I discussed prescriptions and/or symptomatic cares (if applicable) including appropriate and responsible use, followup plan, and return precautions. The patient verbalized understanding and felt safe for discharge. Medical Records I reviewed the patient's medical records. Lab Data I reviewed the patient's lab results. 12/13/22 21:37 12/13/22 21:37 Radiology Impressions Chest X-Ray 12/13/22 21:05 IMPRESSION: 1. Cardiomegaly and mild pulmonary vascular congestion. 2. Bibasilar atelectasis. Laboratory Results WBC 10.1 10^3/uL (4.0-10.0) H 12/13/22 21:37 RBC 5.30 10^6/uL (4.1-5.3) 12/13/22 21:37 Hgb 14.5 g/dL (11.5-15.3) 12/13/22 21:37 Hct 48.1 % (37.0-47.0) H 12/13/22 21:37 MCV 90.8 fl (81-99) 12/13/22 21: MCH 27.4 pg (28.0-34.0) L 12/13/22 21:37 MCHC 30.1 g/dL (30.0-36.0) 12/13/22 21: RDW 15.3 % (12.1-15.1) H 12/13/22 21:37 Plt Count 180 10^3/cmm (130-400) 12/13/22 21:37 MPV 13.5 fL (7.4-10.4) H 12/13/22 21:37 Neut % (Auto) 82.0 % 12/13/22 21: Lymph % (Auto) 9.7 % 12/13/22 21:37 [place] % (Auto) 6.9 % 12/13/22 21: Eos % (Auto) 0.5 % 12/13/22 21: Baso % (Auto) 0.3 % 12/13/22 21: Neut # (Auto) 8.25 10^3/uL (1.8-7.7) H 12/13/22 21:37 Lymph # (Auto) 1.0 10^3/uL (0.8-4.8) 12/13/22 21:37 [place] # (Auto) 0.7 10^3/uL (0.2-0.9) 12/13/22 21:37 Eos # (Auto) 0.1 10^3/uL (0.0-0.8) 12/13/22 21:37 Baso # (Auto) 0.0 10^3/uL (0.0-0.1) 12/13/22 21:37 Nucleated RBC % (auto) 0 % 12/13/22 21:37 Nucleated RBCs # 0.0 /100WBC 12/13/22 21:37 D-Dimer <= 0.27 ug/mIFEU (0-0.59) 12/13/22 21:37 Sodium 143 mmol/L (136-145) 12/13/22 21:37 Potassium 4.4 mmol/L (3.5-5.1) 12/13/22 21:37 Chloride 104 mmol/L (98-107) 12/13/22 21:37 Carbon Dioxide 23 mmol/L (22-29) 12/13/22 21:37 Anion Gap 20.4 (5-19) H 12/13/22 21:37 BUN 17 mg/dL (6-20) 12/13/22 21:37 Creatinine 0.7 mg/dL (0.5-0.9) 12/13/22 21:37 GFR Calculation 87.2 mL/min (90-130) L 12/13/22 21:37 Glucose 191 mg/dL (65-115) H 12/13/22 21:37 Calculated Osmolality 303 mOsm/kg (285-295) H 12/13/22 21:37 Calcium 9.1 mg/dL (8.5-10.5) 12/13/22 21:37 Total Bilirubin 0.7 mg/dL (0.15-1.2) 12/13/22 21:37 AST 9 U/L (0-32) 12/13/22 21:37 ALT < 5 U/L (0-33) 12/13/22 21:37 Alkaline Phosphatase 120 U/L (35-105) H 12/13/22 21:37 Troponin T Baseline 9 ng/L (0-10) 12/13/22 21:37 Troponin T 120 Minute 8.09 ng/L (0-10) 12/13/22 23:47 Delta Troponin T -0.91 ABS# (0-10) L 12/13/22 23:47 NT-Pro-B Natriuret Pep 153 pg/mL (0-125) H 12/13/22 21:37 Total Protein 5.9 g/dL (6.6-8.7) L 12/13/22 21:37 Albumin 3.7 g/dL (3.5-5.2) 12/13/22 21:37 Globulin 2.2 g/dL (1.3-4.6) 12/13/22 21:37 Lipase 27 U/L (13-60) 12/13/22 21:37 Discharge Plan Discharge Patient Disposition: Home Clinical Impression: Chest pain, Tachycardia, Dehydration, mild Condition: Stable Prescriptions: No Action All Day Allergy (cetirizine) 10 mg capsule 10 mg PO DAILY meclizine 25 mg tablet 25 mg PO TID PRN amantadine HCl 100 mg capsule 100 mg PO BID glipizide 10 mg tablet extended release 24hr 10 mg PO DAILY Qty: 30 2RF Rx Instructions: Stop all other glipizide Rx omeprazole 20 mg capsule,delayed release(DR/EC) 20 mg PO DAILY docusate sodium 100 mg capsule 200 mg PO .at bedtime Qty: 60 0RF Rx Instructions: put on EMR do not send medication cholecalciferol (vitamin D3) 50 mcg (2,000 unit) capsule 50 mcg PO DAILY Qty: 30 0RF Rx Instructions: Don not send please put on EMR ascorbic acid (vitamin C) 500 mg capsule 500 mg PO DAILY Qty: 30 0RF Rx Instructions: Do Not send Please put on EMR acetaminophen [Tylenol Extra Strength] 500 mg tablet 500 mg PO .2 times day PRN (Reason: fever) Qty: 60 0RF Rx Instructions: Do not send please put on EMR guaifenesin [Adult Tussin Chest Congestion] 100 mg/5 mL liquid 100 mg PO .three times day Qty: 473 0RF Rx Instructions: for 7 days (DME) blood-glucose meter [NovaSysuch Ultra2 Meter] Kit See Rx Instructions .Route Qty: 1 0RF Rx Instructions: As directed (DME) OneTouch Ultra Test Strip See Rx Instructions .Route Qty: 50 5RF Rx Instructions: 1 strip day (DME) lancets [OneTouch Delica Plus Lancet] 33 gauge misc See Rx Instructions .Route Qty: 100 5RF Rx Instructions: one day albuterol sulfate 2.5 mg /3 mL (0.083 %) solution for nebulization 2.5 mg inhalation TID Qty: 75 2RF Rx Instructions: use for 14 days Vicks Vaporub 4.7-1.2-2.6 % ointment 1 applic topical .COMPLEX PRN (Reason: cold symptoms) Qty: 50 0RF Rx Instructions: 1 applic topically PRN; apply to neck at bedtime as needed for pain Trulicity 1.5 mg/0.5 mL pen injector 1.5 mg SUBCUT .weekly Qty: 2 0RF Rx Instructions: please change on EMR carbidopa-levodopa [Sinemet] 25-100 mg tablet See Rx Instructions PO .COMPLEX Qty: 150 2RF Rx Instructions: 1.5 tab AM & noon meal; 1 tab 5pm &8pm orally; metoprolol tartrate 100 mg tablet See Rx Instructions .ROUTE .COMPLEX Qty: 60 3RF Dose Instruction: TAKE ONE TABLET BY MOUTH TWICE DAILY Rx Instructions: TAKE ONE TABLET BY MOUTH TWICE DAILY Paxlovid (EUA) 300 mg (150 mg x 2)-100 mg tablets,dose pack See Rx Instructions PO .COMPLEX Qty: 30 0RF Rx Instructions: take TWO 150 mg tablets of nirmatrelvir with ONE 100 mg tablet of ritonavir twice daily for 5 days PO STOP [facility] Discharge Orders: Discharge ED (Routine); Ordered 12/14/22 Ordered By: Ajay Young Referrals: Margarito Payton, [facility] [Primary Care Provider] - Discharge Diet: Usual diet Discharge Activity: Increase activity as tolerated Patient Instructions: Chest Pain (ED), Dehydration (ED) Activity Restrictions/Additional Instructions: Thank you for visiting the emergency department. You were seen and evaluated for chest pain. The exact cause your symptoms is unclear. Based on risk stratification you do require further cardiac testing however you are declining stress testing at this time. You are not low risk for adverse cardiac events. I will message case management for cardiology follow-up. Please also follow-up with your primary care provider. Please ensure that you are staying hydrated. Return to the emergency department for worsening symptoms or anything else that you are concerned about and feel needs emergency department evaluation. Coding Level of Care Code ED Public Records Researcher for Shahbaz Espinoza
--- NOTE | 2022-12-13 21:00 | PC.NURSE ---
allergy band place on pt at this time
[2022-12-13 21:03] VITALS: BP 116/79; PULSE 109; RESP 16; TEMP 36.4; O2SAT 97
--- NOTE | 2022-12-13 21:05 | XRR_ITS ---
PROCEDURE INFORMATION: Exam: XR Chest Exam date and time: 12/13/2022 9:09 PM Age: 52 years old Clinical indication: Chest pressure; Patient HX: C/O chest pain; Additional info: Cp TECHNIQUE: Imaging protocol: Radiologic exam of the chest. Views: 1 view. COMPARISON: CR XR chest 2V* [id number] 03/23/2016 12:09 PM FINDINGS: Lungs: Bibasilar atelectasis. Pleural spaces: Unremarkable. No pleural effusion. No pneumothorax. Heart/Mediastinum: Cardiomegaly and mild pulmonary vascular congestion. Bones/joints: Left 6th likely chronic posterior rib fracture XR/XR chest 1V portable [id number] IMPRESSION: 1. Cardiomegaly and mild pulmonary vascular congestion. 2. Bibasilar atelectasis.
[2022-12-13] MEDS: aspirin 81 mg Chew Tablet 324 MG PO (21:12)
--- NOTE | 2022-12-13 21:16 | ECG_ITS ---
[facility] Test Date: 2022-12-13 Pat Name: Kavitha Sue Department: Room: Gender: Female Station Operator: : 1970 Requested By: Ajay Young Order Number: [id number] Reading MD: SILVESTRE MILLAN Measurements Intervals [place] Rate: 108 P: 52 MT: 129 QRS: 12 QRSD: 89 T: 4 QT: 344 QTc: 462 Interpretive Statements SINUS TACHYCARDIA MINIMAL ST DEPRESSION [0.025+ mV ST DEPRESSION] ABNORMAL RHYTHM ECG No previous ECG available for comparison Electronically Signed On 12-14-2022 20:32:36 CDT by SILVESTRE MILLAN [id number]
--- NOTE | 2022-12-13 21:24 | PC.NURSE ---
Placed on bedside monitoring and evaluation advisor
[2022-12-13 21:30] VITALS: BP 113/79; RESP 110; O2SAT 97
[2022-12-13 22:00] VITALS: BP 115/82; PULSE 107; RESP 16; O2SAT 97
[2022-12-13 22:03] LABS: D Dimer <= 0.27 ug/mIFEU (0-0.59)
[2022-12-13 22:07] LABS: Troponin(5th) Baseline 9 ng/L (0-10)
[2022-12-13 22:11] LABS: Basophils % 0.3 %; Eosinophils # 0.1 10^3/uL (0.0-0.8); Eosinophils % 0.5 %; Hematocrit 48.1 % (37.0-47.0); Hemoglobin 14.5 g/dL (11.5-15.3); Lymphocytes % 9.7 %; Mean Corpuscular HGB Conc 30.1 g/dL (30.0-36.0); Mean Corpuscular Hemoglobin 27.4 pg (28.0-34.0); Mean Corpuscular Volume 90.8 fl (81-99); Mean Platelet Volume 13.5 fL (7.4-10.4); Monocytes # 0.7 10^3/uL (0.2-0.9); Monocytes % 6.9 %; Neutrophils # 8.25 10^3/uL (1.8-7.7); Nucleated Red Blood Cells % 0 %; Platelet Count 180 10^3/cmm (130-400); Red Cell Distribution Width 15.3 % (12.1-15.1); White Blood Count 10.1 10^3/uL (4.0-10.0)
[2022-12-13 22:13] LABS: Alanine Aminotransferase < 5 U/L (0-33); Albumin Level 3.7 g/dL (3.5-5.2); Alkaline Phosphatase 120 U/L (35-105); Anion Gap 20.4 (5-19); Aspartate Amino Transferase 9 U/L (0-32); Blood Urea Nitrogen 17 mg/dL (6-20); Calcium 9.1 mg/dL (8.5-10.5); Carbon Dioxide 23 mmol/L (22-29); Chloride 104 mmol/L (98-107); Globulin 2.2 g/dL (1.3-4.6); Glomerular Filtration Rate 87.2 mL/min (90-130); Glucose 191 mg/dL (65-115); Lipase 27 U/L (13-60); NT Pro B Type Natriuretic Pept 153 pg/mL (0-125); Osmolality Calculated 303 mOsm/kg (285-295); Potassium 4.4 mmol/L (3.5-5.1); Sodium 143 mmol/L (136-145); Total Bilirubin 0.7 mg/dL (0.15-1.2); Total Protein 5.9 g/dL (6.6-8.7)
[2022-12-13 22:30] VITALS: BP 103/77; PULSE 104; RESP 16; O2SAT 97
--- NOTE | 2022-12-13 23:05 | ECG_ITS ---
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: : 1970 Requested By: Ajay Young Order Number: [id number] Reading MD: SILVESTRE MILLAN Measurements Intervals [place] Rate: 105 P: 46 MD: 108 QRS: 30 QRSD: 90 T: 46 QT: 349 QTc: 461 Interpretive Statements SINUS TACHYCARDIA WITH SHORT MD INTERVAL ABNORMAL RHYTHM ECG Compared to ECG 12/13/2022 21:16:50 Short MD interval now present ST (T wave) deviation no longer present Electronically Signed On 12-14-2022 20:33:32 CDT by SILVESTRE MILLAN [id number]
--- NOTE | 2022-12-13 23:05 | PC.NURSE ---
REPORT RECEIVED FROM CHARLEE. PT RESTING IN BED, A&O X3, DENIES PAIN AT THIS TIME. DENIES ANY FURTHER NEEDS.
[2022-12-13 23:06] VITALS: BP 121/84; PULSE 107; RESP 16; O2SAT 97
[2022-12-14 00:13] LABS: Troponin 5 2HR 8.09 ng/L (0-10)
--- NOTE | 2022-12-14 00:15 | PC.NURSE ---
Assisted pt to bed diggs. Unable to urinate. Brief was soiled with urine. Incontent care provided. Clean brief provided.
[2022-12-14] MEDS: sodium chloride 0.9% 500 ML 999 ML IV (00:26)
[2022-12-14 00:27] LABS: Troponin 5 2HR Delta -0.91 ABS# (0-10)
[2022-12-14 00:45] VITALS: BP 124/85; PULSE 109; RESP 16; O2SAT 99
--- NOTE | 2022-12-14 02:34 | PC.NURSE ---
Pt provided with snacks. Updated on plan for DC.
[2022-12-14 06:00] VITALS: BP 103/77
[2022-12-14 06:07] VITALS: PULSE 98; RESP 13; O2SAT 98
--- NOTE | 2022-12-14 06:43 | PC.NURSE ---
CALLED AND SPOKE WITH [facility], TOLD THEM PT WOULD BE TRANSPORTED BACK VIA [facility] THIS AM. INFORMED THEN PT TO FOLLOW UP WITH DIRECTOR AUTO FOR STRESS TEST.
--- NOTE | 2022-12-14 09:03 | DCPLANNER ---
Addendum entered by Radha Johnson 02/14/23 14:44: This appointment was cancelled Addendum entered by Radha Johnson 12/15/22 11:29: Patient has a follow up appointment scheduled for Tuesday, February 07, 2023 at 12:[address] Trujillo at [facility]. Clinic will call patient with appointment information. Original Note: manager program had message to schedule a follow up appointment for patient with cardiology. manager program sent patients information to the front office staff at [facility]. Patients information will be printed and reviewed. Clinic will call patient with appointment information.
== END 2022-12-14 07:47 | disposition home or self-care (01) ==
PROVIDERS: Emergency Provider Emergency Medicine; PCP Nurse Practitioner
DX: R07.9 Chest pain, unspecified (principal); R00.0 Tachycardia, unspecified; E86.0 Dehydration; Z79.84 Long term (current) use of oral hypoglycemic drugs; Z79.85 Long-term (current) use of injectable non-insulin antidiabetic drugs; E11.9 Type 2 diabetes mellitus without complications; G20 Parkinson's disease
CPT/HCPCS: 36415; 71045; 80053; 83690; 83880; 84484; 85025; 85378; 93005; 96374; 99285; J7040

== ENCOUNTER → 2023-02-03 11:12 | Outpatient (BNVA) | payer MEDICAID, SELFPAY | PROVIDERS: PCP Nurse Practitioner; Visit Provider Surgery | DX: N63.20 Unspecified lump in the left breast, unspecified quadrant (principal) | CPT/HCPCS: 99203 ==

== ENCOUNTER 2023-02-15 13:26 | Outpatient (CLI) | payer MEDICAID, SELFPAY ==
--- NOTE | 2023-02-15 13:15 | US_ITS ---
WS: [id number] ULTRASOUND-GUIDED LEFT BREAST BIOPSY CLINICAL INFORMATION: left breast mass COMPARISON: Ultrasound October 14, 2022 FINDINGS: The procedure including risks, benefits, and complications were discussed with the patient who agreed to proceed. Using sterile technique patient was prepped and draped in the usual sterile fashion. Aft er 1% lidocaine utilizing real-time ultrasound guidance 7 14-gauge cores were obtained of the LEFT br east lesion at the 2 o'clock position 6 cm from the nipple. Subsequently a titanium clip was placed i n the biopsy cavity. No immediate complications. Pathology demonstrates A. Breast, left, 2 o'clock, 6 cm from nipple , ultrasound-guided biopsy: - Invasive ductal carcinoma, poorly differentiated. - Byrd Iraheta grade 3 (score 8). US/[place] [id number] IMPRESSION: 1. Uncomplicated ultrasound-guided LEFT breast biopsy. 2. The pathology demonstrates invasive ductal carcinoma poorly differentiated, grade 3. 3. Breast cancer prognostic profile pending. BI-RADS: 6-Known Biopsy-Proven Malignancy FOLLOW UP: Surgical Biopsy Recommended RECOMMEND BREAST SURGERY CONSULTATION.
[2023-02-21 08:09] LABS: Breast Profile ER,PR,HER2,Ki-6 See Report
== END 2023-02-15 13:27 | disposition home or self-care (01) ==
PROVIDERS: PCP Nurse Practitioner; Visit Provider Surgery
DX: N63.20 Unspecified lump in the left breast, unspecified quadrant (principal)
CPT/HCPCS: 19083; 88305; 88361; 88374

== ENCOUNTER 2023-03-01 13:07 | Oncology outpatient (recurring) (ONCR) | payer MEDICAID, SELFPAY | END 2023-03-01 23:59 | disposition home or self-care (01) | PROVIDERS: PCP Nurse Practitioner; Visit Provider Internal Medicine Medical Oncology | DX: C50.412 Malignant neoplasm of upper-outer quadrant of left female breast (principal); Z17.0 Estrogen receptor positive status [ER+] | CPT/HCPCS: 99215 ==

== ENCOUNTER 2023-03-01 14:34 | Outpatient (CLI) | payer MEDICAID, SELFPAY ==
[2023-03-01 16:08] LABS: Estmated Average Glucose 177; Hemoglobin A1C 7.8 % (4.0-6.0)
[2023-03-01 16:13] LABS: Alanine Aminotransferase < 5 U/L (0-33); Albumin Level 3.6 g/dL (3.5-5.2); Alkaline Phosphatase 104 U/L (35-105); Aspartate Amino Transferase 9 U/L (0-32); Blood Urea Nitrogen 14 mg/dL (6-20); Calcium 8.9 mg/dL (8.5-10.5); Carbon Dioxide 26 mmol/L (22-29); Chloride 105 mmol/L (98-107); Chol HDL Ratio 3.35 mg/dL (0.0-4.40); Cholesterol 144 mg/dL (0-200); Globulin 2.2 g/dL (1.3-4.6); Glomerular Filtration Rate 104.2 mL/min (90-130); Glucose 229 mg/dL (65-115); HDL Cholesterol 43 mg/dL (60-100); LDL Cholesterol Calculated 61 mg/dL (50-129); Osmolality Calculated 302 mOsm/kg (285-295); Sodium 142 mmol/L (136-145); Thyroid Stimulating Hormone 2.95 uIU/mL (0.27-4.20); Total Bilirubin 0.2 mg/dL (0.15-1.2); Total Protein 5.8 g/dL (6.6-8.7); Triglycerides 199 mg/dL (0-150); VLDL Cholestrol Calculation 40 mg/dL (0-30)
[2023-03-01 16:15] LABS: Anion Gap 15.4 (5-19); Potassium 4.4 mmol/L (3.5-5.1)
== END 2023-03-01 14:35 | disposition home or self-care (01) ==
LOC: LAB 14:37
PROVIDERS: PCP Nurse Practitioner; Visit Provider Nurse Practitioner
DX: E11.65 Type 2 diabetes mellitus with hyperglycemia (principal)
CPT/HCPCS: 36415; 80053; 80061; 83036; 84443

== ENCOUNTER → 2023-03-07 10:01 | Outpatient (BNVA) | payer MEDICAID, SELFPAY | PROVIDERS: PCP Nurse Practitioner; Visit Provider Surgery | DX: C50.412 Malignant neoplasm of upper-outer quadrant of left female breast (principal) | CPT/HCPCS: 99213 ==

== ENCOUNTER 2023-03-20 09:01 | Day surgery (SDC) | payer MEDICAID, SELFPAY ==
[2023-03-17 09:56] VITALS: BMI 20.9
[2023-03-20] VITALS (12 sets, daily range): BP systolic 133–164; BP diastolic 83–94; PULSE 71–88; RESP 16–22; TEMP 36.1–36.3; O2SAT 91–99
--- NOTE | 2023-03-20 | US_ITS ---
WS: [id number] ULTRASOUND-GUIDED LEFT BREAST NEEDLE LOCALIZATION HISTORY: Localization LEFT breast mass 2:00. Procedure, risks and complications were explained to the patient. Consent is obtained. Skin is cleansed with ChloraPrep and anesthetized with 1% buffered lidocaine. Needle and guidewire pl aced to the area of concern with no complications. Ultrasound guidance performed during the needle lo calization. Guidewire is left within the lesion. Guidewire secured and no complications encountered. Patient is being transported to the OR suite. Lesion is localized at 2:00, 6 cm from the nipple. Wire is placed through the needle without complica tion. Specimen radiograph is also reviewed. Mass is noted within the specimen. RECOMMENDATIONS: Follow-up with breast surgeon. US/US breast surgical specimen IMPRESSION: 1. Uncomplicated wire localization LEFT breast mass at 2:00. 2. Localized mass is within the specimen. PATHOLOGY RESULTS: Invasive ductal carcinoma. 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
--- NOTE | 2023-03-20 09:11 | NM_ITS ---
WS: [id number] NUCLEAR MEDICINE SENTINEL LYMPH NODE IMAGING HISTORY: left breast lump COMPARISON: Prior ultrasound 02/15/2023. TECHNIQUE: The patient was injected with 0.29 mCi of Technetium 99 Tilmanocept Lymphoseek . Single in jection site at 1:00. Injection completed at 10:20 AM. NM/NM sentinel node inject [id number] IMPRESSION: [place] node injection LEFT breast complete at 10:20 AM.
--- NOTE | 2023-03-20 09:11 | US_ITS ---
WS: [id number] ULTRASOUND-GUIDED LEFT BREAST NEEDLE LOCALIZATION HISTORY: Localization LEFT breast mass 2:00. Procedure, risks and complications were explained to the patient. Consent is obtained. Skin is cleansed with ChloraPrep and anesthetized with 1% buffered lidocaine. Needle and guidewire pl aced to the area of concern with no complications. Ultrasound guidance performed during the needle lo calization. Guidewire is left within the lesion. Guidewire secured and no complications encountered. Patient is being transported to the OR suite. Lesion is localized at 2:00, 6 cm from the nipple. Wire is placed through the needle without complica tion. Specimen radiograph is also reviewed. Mass is noted within the specimen. RECOMMENDATIONS: Follow-up with breast surgeon. US/[place] [id number] IMPRESSION: 1. Uncomplicated wire localization LEFT breast mass at 2:00. 2. Localized mass is within the specimen. PATHOLOGY RESULTS: Invasive ductal carcinoma. 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
[2023-03-20] MEDS: sodium chloride 0.9% 1,000 ML 30 ML IV (09:41)
[2023-03-20 09:46] LABS: Glucose Point of Care 202 mg/dL (70-110)
--- NOTE | 2023-03-20 09:51 | P.ANESASSM_ITS ---
Pre-Anesthetic Assessment Height/Weight: Height 1.65 m Weight 57.153 kg Pulse Resp BP Pulse Ox O2 Del Method 76 18 134/92 99 Room Air 03/20/23 09:41 03/20/23 09:41 03/20/23 09:41 03/20/23 09:41 03/20/23 09:41 Operation Date: 03/20/23 11:20 Proposed Procedures p Breast Lumpectomy w/ Needle Localization(Left) - Sukhdev Jara DO s Sentinal Lymph Node Biopsy(Left) - Sukhdev Jara DO Familial anesthetic complications: none Was Beta Sandra taken within 24 hours: Yes Was Clonidine taken within 24 hours: N/A Last intake: Intake Last Liquid Date 03/19/23 Last Liquid Time 18:00 Last Solid Date 03/19/23 Last Solid Time 23:00 Social No alcohol and No tobacco Exam alert, oriented x 3, clear to auscultation bilaterally and regular rate & rhythm Airway Submandibular: within normal limits Cervical ROM: within normal limits Mallampati: Class II Dentition: full CV/HEM Hypertension GI Gastroesophageal Reflux Disease Metabolic Diabetes Mellitus Neuropsych Anxiety and Depression Parkinson's Anesthetic Plan ASA status: 3 Anesthesia: General Medications/Allergies Home Medications Medication Instructions Recorded Confirmed Last Taken Type meclizine 25 mg tablet 25 mg PO TID PRN Dizziness 03/25/20 03/17/23 03/17/23 History amantadine HCl 100 mg capsule 100 mg PO BID 01/25/22 03/17/23 03/16/23 History acetaminophen 500 mg tablet 500 mg PO .2 times day PRN fever 06/25/22 03/17/23 Unknown Rx (Tylenol Extra Strength) #60 tabs ascorbic acid (vitamin C) 500 mg 500 mg PO DAILY #30 caps 06/25/22 03/17/23 03/17/23 Rx capsule cholecalciferol (vitamin D3) 50 50 mcg PO DAILY #30 caps 06/25/22 03/17/23 03/17/23 Rx mcg (2,000 unit) capsule docusate sodium 100 mg capsule 200 mg PO .at bedtime #60 caps 06/25/22 03/17/23 03/17/23 Rx blood sugar diagnostic (OneTouch #50 ea 08/10/22 03/14/23 Unknown Rx Ultra Test strips) blood-glucose meter (OneTouch #1 ea 08/10/22 03/14/23 Unknown Rx Ultra2 Meter kit) lancets 33 gauge (OneTouch Delica #100 ea 08/10/22 03/14/23 Unknown Rx Plus Lancet) solifenacin 10 mg tablet (Vesicare) 10 mg PO DAILY 12/21/22 03/17/23 03/17/23 History omeprazole 20 mg capsule,delayed 20 mg PO DAILY #30 caps 01/04/23 03/17/2303/20 Rx release glipizide 10 mg tablet, extended 10 mg PO DAILY #30 tabs 01/25/23 03/17/23 03/17/23 Rx release 24 hr pen needle, diabetic 33 gauge x #100 ea 01/25/23 03/14/23 Unknown Rx insulin detemir U-100 100 unit/mL 25 unit (0.25 mL) SUBCUT DAILY #15 03/14/23 03/17/23 03/17/23 Rx (3 mL) subcutaneous pen (Levemir mL FlexPen) cefuroxime axetil 500 mg tablet 500 mg PO BID #20 tabs 03/15/23 03/17/23 03/17/23 Rx cetirizine 10 mg capsule (All Day 10 mg PO DAILY #20 caps 03/15/23 03/17/23 03/17/23 Rx Allergy (cetirizine)) guaifenesin 100 mg/5 mL oral 100 mg (5 mL) PO .three times day 03/15/23 03/17/23 03/17/23 Rx liquid (Adult Tussin Chest #473 mL Congestion) carbidopa 25 mg-levodopa 100 mg 25 - 100 tab PO DAILY 03/17/23 03/17/23 03/17/23 History tablet (Sinemet) metoprolol tartrate 100 mg tablet 100 mg PO DAILY 03/17/23 03/17/23 03/20/23 History Allergies Allergy/AdvReac Type Severity Reaction Status Date / Time ciprofloxacin [From Cipro] Allergy rash Verified 03/17/23 20:47 doxycycline Allergy unknown Verified 03/17/23 20:47 fluconazole [From Diflucan] Allergy ALGY-Rash Verified 03/20/23 09:36 nitrofurantoin Allergy unknown Verified 03/17/23 20:47 [From Macrodantin] Penicillins Allergy unknown Verified 03/17/23 20:47 Sulfa (Sulfonamide Allergy rash Verified 03/17/23 20:47 Antibiotics) metformin AdvReac Severe ADR-Diarrhe Verified 03/17/23 20:47 a dulaglutide [facility] AdvReac ADR-Nausea Verified 03/17/23 20:47 Current Medications Generic Name Dose Route Start Last Admin Trade Name Freq PRN Reason Stop Dose Admin Sodium Chloride 1,000 mls @ 30 mls/hr 03/20/23 09:15 03/20/23 09:41 Sodium Chloride 0.9% IV 03/21/23 09:14 30 mls/hr .Q24H MIKAELA Administration PFSH Anesthesia Medical History Anxiety Autoimmune thrombocytopenia Bradykinesia Breast cancer, left Closed fracture distal radius and ulna DOS: 12/19/18 ORIF left distal radius and ORIF with percutaneous pinning ulnar styloid Constipation, slow transit GERD (gastroesophageal reflux disease) Hypertension Multi-system degeneration of autonomic nervous system Parkinson disease Type 2 diabetes mellitus Surgical History History of open reduction and internal fixation (ORIF) procedure (11/2018) ORIF for left distal radius/ulnar fracture Family History Other Cancer Chronic kidney disease (CKD) Diabetes Family history of premature coronary artery disease Hypertension Denies family history of Stroke Social History Smoking and tobacco status: never smoked Second hand smoke exposure: No Smoking risk assessment/counseling performed?: No Alcohol intake: never Desire information about alcohol rehabilitation?: No Counseling given: No Substance/Drug Use: never Desire information about substance/drug rehabilitation?: No Counseling given: No Adopted: No Caregiver/support person: Yes (Dad and Brother) Lives independently: No Housing: Assisted Living Facility Marital status: Number of children: 0 Number of grandchildren: 0 Highest education level completed: High School Graduate service: No Current occupational status: disabled Current occupational exposures/hazards: No Pets and animals: Yes Pets & animals: cat(s) Do you think of yourself as: Straight/Heterosexual Current gender identity: Female Data Anesthesia Cardiac Studies: No Data to Display
--- NOTE | 2023-03-20 10:25 | PC.NURSE ---
Patient was injected with 0.89 mCi Tc99m Tilmanocept Lymphoseek at 1020 am in the 1:00 position of the left breast. no complications.
--- NOTE | 2023-03-20 10:37 | W.PM.OPSUD ---
Surgery/Procedure H&P Update DATE OF PROCEDURE: March 20, 2023 DATE H&P PERFORMED: 03/07/23 H&P UPDATE INFORMATION: I have reviewed H&P completed within last 30 days, I have examined patient prior to procedure and No changes to prior documentation PLANNED PROCEDURE: Operation Date: 03/20/23 11:20 Proposed Procedures p Breast Lumpectomy w/ Needle Localization(Left) - DO emani Miner Sentinal Lymph Node Biopsy(Left) - Sukhdev Jara DO
[2023-03-20] MEDS: vancomycin 1,000 MG in sodium chloride 0.9% 250 ML 250 MG IV (10:54)
[2023-03-20] MEDS: lidocaine-epi 2% 20 mL INJ INJECTION (11:22)
[2023-03-20] MEDS: isosulfan blue 10 mg/mL SDV 5mL SUBCUT (11:23)
--- NOTE | 2023-03-20 11:56 | P.OP_ITS ---
Operative Report Date of procedure: March 20, 2023 Pre-op diagnosis: Left breast cancer Post-op diagnosis: same Procedure done: Left breast lumpectomy with needle localization and radiologic correlation Left axillary sentinel lymph node biopsies Implants: Halima and Surgicel Specimens removed/disposition: Left breast lumpectomy marked short superior, double anterior, wire lateral 3 sentinel lymph nodes Surgeon: Dr. Sukhdev Jara DO Anesthesia: General Estimated blood loss (mL): 50 Complications: None apparent Brief History: Is a very pleasant 52-year-old female who presents my office with cancer of the left breast. Left breast lumpectomy with needle insertion and radiologic correlation and sentinel lymph node biopsies were indicated. The risk and benefits were explained and documented. Procedure: After radiotracer was injected and wire localization was performed by radiology, the patient was brought back into the operating room. She was placed on the OR table in the supine position. The left breast and axilla were inspected prepped and draped in usual sterile fashion. Lymphazurin blue was injected underneath the left nipple and massaged for 5 minutes. A timeout was performed. All present were in agreement. A 4 cm incision was made in the left axilla. Dissection was carried down with electrocautery. The Concrete counter was used to locate 3 sentinel lymph nodes. The nipple measured 14,999 on the gamma probe. 2 blue sentinel lymph nodes were found measuring 247 and 170. A third nonbleeding lymph node that measured 154 was found. All were removed and sent off in formalin. No further sentinel lymph nodes were identified. Hemostasis was noted. Next, after localization a 6 cm incision was made over the mass, in the 2 o'clock position. Electrocautery was used to carve out a lumpectomy specimen. The entire needle was included. Dissection was carried down to the pectoralis major muscle. Specimen was taken out en bloc. Wire marked lateral. Short stitch marked superior. Double stitch sanchez anterior. Hemostasis was ac hieved with electrocautery, Halima and a piece of Surgicel in the axilla. Specimen was sent to radiology who said the clip and wire were surrounded by adequate tissue margins. The dermis was approximated with 3-0 Vicryl. The skin was closed with 4-0 Monocryl in a subcuticular and running fashion. Dermabond was applied. Patient tolerated the procedure well.
[2023-03-20 12:43] LABS: Glucose Point of Care 159 mg/dL (70-110)
[2023-03-20] MEDS: HYDROcodone-acetaminophen 5-325 mg Tablet 1 TAB PO (13:25)
--- NOTE | 2023-03-20 14:34 | ANE.PACU2 ---
Inpatient post-anesthesia follow up: Airway intact: Yes Vital signs: Temperature 97.0 F Pulse Rate 88 Respiratory Rate 18 Blood Pressure 162/93 Pulse Oximetry 97 Oxygen Delivery Me thod Room Air Oxygen Flow Rate 6 Fraction of Inspir ed Oxygen Hydration adequate: Yes Nausea and vomiting: No Pain level: 2 Mental status: Baseline Additional Comments: Blue tinted skin from dye.
== END 2023-03-20 14:49 | disposition home or self-care (01) ==
PROVIDERS: PCP Nurse Practitioner; Visit Provider Surgery
PROC: (CPT 19120; principal; 2023-03-20 11:20)
PROC: (CPT 19120; 2023-03-20 11:20)
DX: C50.412 Malignant neoplasm of upper-outer quadrant of left female breast (principal); R59.0 Localized enlarged lymph nodes; E11.9 Type 2 diabetes mellitus without complications; I10 Essential (primary) hypertension; K21.9 Gastro-esophageal reflux disease without esophagitis; G20 Parkinson's disease; Z79.84 Long term (current) use of oral hypoglycemic drugs; Z79.4 Long term (current) use of insulin; Z88.0 Allergy status to penicillin; Z88.2 Allergy status to sulfonamides
CPT/HCPCS: 19120; 38500; 19285; 36416; 38792; 82962; 88307; A9520; C1889; J1100; J2405; J2704; J2710; J3010; J3370; J3490; J7030; J7050; Q9968

== ENCOUNTER → 2023-04-11 10:33 | Outpatient (BNVA) | payer MEDICAID, SELFPAY | PROVIDERS: PCP Nurse Practitioner; Visit Provider Surgery | DX: Z98.890 Other specified postprocedural states (principal); C50.912 Malignant neoplasm of unspecified site of left female breast | CPT/HCPCS: 99024 ==

== ENCOUNTER 2023-05-01 13:52 | Oncology outpatient (recurring) (ONCR) | payer MEDICAID, SELFPAY ==
--- NOTE | 2023-04-20 17:22 | N.ONRAD NP_ITS ---
Radiation Oncology New Patient Visit Patient: Kavitha Sue MR#: [id number] : 1970> Age: 52> Sex: Female> Dictated by: Theodore Morales Date of Service: 04/20/2023 Referring Physician(s) : Hi Canales M.D. 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 Chief Complaint / History of Present Illness: Ms Sue is a 52-year-old lady disabled by a chronic neurologic disorder who underwent screening mammography in September 2022. In the upper outer quadrant of the left breast she had an asymmetric density with slight spiculation. Further studies were recommended, and on ultrasound she had an irregular hypoechoic mass measuring approximately 11 x 11 x 8 mm. She underwent a biopsy with ultrasound guidance on 02/15/2023. The pathology was interpreted as grade 3 invasive ductal carcinoma. The prognostic profile is noted above. She was a candidate for breast conservation and desired to proceed in that fashion. She underwent a lumpectomy and sentinel node biopsy on 03/20/2023. 3 sentinel nodes were removed and all were benign. The tumor site was described as the 2 o'clock position 6 cm from the nipple. The pathology confirmed invasive ductal carcinoma; however, the grade was corrected to grade 2. Tumor size was 8 mm. The invasive cancer was in a single focus but she did have 2 of 16 blocks showing DCIS. Also a single focus of micropapillary ADH was noted on a single slide. There was no lymphatic vascular invasion. All margins were negative. The anterior margin was the closest at 1 mm with all other the margins more than 5 mm. The cancer was staged pT1b pN0(sn). Current Medications: Acetaminophen, allergy Relief (Cetirizine), aLPRAZolam, amantadine HCl, amLODIPine Besylate, ascorbic Acid, carbidopa-Levodopa, cholecalciferol, cVS Omeprazole, cVS Omeprazole, docusate Sodium, fluzone, glipiZIDE, glyBURIDE, guaiFENesin, hYDROcodone-Acetaminophen, insulin Detemir, meclizine HCl, metoprolol Tartrate, metoprolol Tartrate, ondansetron HCl, pantoprazole Sodium, solifenacin Succinate, traMADol HCl, triamterene-HCTZ, xanax. Allergies: Sulfamethoxazole-Trimethoprim, Penicillin V Potassium, Cipro and NONSTEROIDAL ANTI-INFLAMMATORIES. Medical History: ATYPICAL PARKINSON'S DISEASE, THROMBOCYTOPENIA in 1999. No history of collagen vascular disease. No previous radiation therapy. Surgical History: CERVICAL POLYP REMOVAL in 01/2000, flu vaccine 20-21 formula on 08/10/2020 and pneumovax 23 on 08/10/2020. Family History: Father is alive having experienced diabetes. Mother is having experienced Breast Cancer, and Heart attack. Her father is well, but received radiation and chemotherapy for a MALT lymphoma of the stomach a few years ago. Social History: Last screened on 12/15/2021 - Never smoked. Current Complaints / Review of Systems: No ENT, pulmonary, cardiac, GI, or complaints.. Vital Signs: Performed on 04/20/2023 3:56 PM BMI - 21.8 kg/m2, Height - 64 in, Weight - 127 lbs, Temperature - 96.9 f, Pulse - 85 /min, Respiration - 17 /min, O2 Sat - 98 %, Pain - 7, Fatigue - 0 and BP - 122/ 83 mm(hg). Physical Exam: Alert, oriented, no acute distress. Her affect is somewhat flat. She is capable of speaking and seems to understand everything that is said to her, but she depends upon her father to do most of the talking. If asked a question directly with eye contact, she will answer it with coherence and appropriate insight. Neck: Supple. No masses. No cervical or supraclavicular lymphadenopathy. Lungs: Clear to percussion. On auscultation no rales, rhonchi, or wheezes. Heart: Regular rhythm. No murmur or gallop noted. Breasts: Right breast is normal in appearance and has no masses, induration, or tenderness. No right axillary lymphadenopathy. The left breast has an excellent cosmetic result. The lumpectomy incision and the left axillary incision are well-healed. They are nontender to palpation and there is no evidence of infection. The tumor bed is soft and nontender with no masses palpable. The remainder the breast is free of masses. Abdomen: No distention. No organomegaly, mass, or tenderness. Musculoskeletal: She is confined to a wheelchair. Her father states that she is ambulatory with assistance but that was not tested. She had no bone tenderness. 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 Lab: None. Imaging: See HPI Impression: Ms. Sue has undergone lumpectomy and sentinel node biopsy for an invasive ductal carcinoma of the left breast. She has healed extremely well. She is now a candidate for postoperative radiation as part of breast conservation. I discussed that with her and her father. I discussed the data logistics of treatment, and the fact that treatments are given 5 days/week. Medicaid Transportation will need to be arranged. I reviewed side effects and possible complications. She wishes to proceed as recommended and her father strongly desires that she proceed with appropriate treatment. Though she had a close anterior margin, it was clear, and I feel that 3 weeks of hypofractionated radiation will be adequate. She will receive endocrine therapy following radiation. Plan: Transportation will be worked out, and she will return for simulation when that is arranged. Signed by: 04/20/2023 5:21:54 PM <<Signature on File>> Time spent with patient: CPT Code: CPT Code:
== END 2023-05-01 23:59 | disposition home or self-care (01) ==
PROVIDERS: PCP Nurse Practitioner; Visit Provider Specialist
DX: Z51.0 Encounter for antineoplastic radiation therapy (principal); C50.812 Malignant neoplasm of overlapping sites of left female breast; Z17.0 Estrogen receptor positive status [ER+]; C77.8 Secondary and unspecified malignant neoplasm of lymph nodes of multiple regions
CPT/HCPCS: 77280; 77295; 77300; 77334; 77387; 77412; 99205; 99214

== ENCOUNTER 2023-05-17 13:54 | Oncology outpatient (recurring) (ONCR) | payer MEDICAID, SELFPAY ==
--- NOTE | 2023-05-02 15:00 | ONCRAD TMN_ITS ---
Radiation Oncology Treatment Management Note Patient Name: Kavitha Sue Date of : 1970 Date of Service: 05/02/2023 Attending Physician: Aditya Mtz M.D. Kavitha Sue is a 52 year-old white female diagnosed with a pathological stage IA (T1bN0), grade 2 invasive ductal carcinoma of the upper-outer quadrant of the left breast. The breast cancer profile was positive for estrogen receptor 95%) and progesterone receptor (90%), but negative for HER-2. The Ki-67 was 20%. She has received 10.7 Gy of a prescribed 40 Gy delivered with a 3D conformal radiotherapy plan utilizing opposed tangential portal szymanski. Upon review of systems, she denied any breast complaints to radiotherapy. On physical examination, the patient weighed 124 lbs. Her temperature was 97.7 ???F and the blood pressure was 131/84 mmHg. Her pulse was 60 bpm and her respiratory rate was 16. There was no erythema within the treatment szymanski of the left breast. Continue hypofractionated left breast radiotherapy as prescribed. Signed by: Dr. Aditya Mtz 05/02/2023 3:00:58 PM
--- NOTE | 2023-05-09 14:38 | ONCRAD TMN_ITS ---
Radiation Oncology Weekly Treatment Management Patient: Kavitha Sue MR#: [id number] : 1970> Attending Physician: Jaswant Nair Date of Service: 05/09/2023 Referring Physician(s) : Hi Canales M.D. 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 ID: [id number], Energy: 6X, Dose/Fx (cGy): 266.7, #Fx: , Dose Correction (cGy): 0, Total Dose (cGy): 2,400, Start Date: 04/27/2023, Elapsed Days: 12 Reason for visit: The patient is being seen today as part of their regularly scheduled weekly on treatment visits to assess for acute toxicities from radiotherapy. Review of Systems: Patient is under the care of her father who is her guardian. He was present today at the time of examination. Patient complains of mild fatigue. She is using moisturizers as instructed and has no complaints of skin irritation or lymphedema. She is currently in a care facility and transportation is provided by her father. Vital Signs: Performed on 05/09/2023 2:08 PM BMI - 21.456 kg/m2, Height - 64 in, Weight - 125.0 lbs, Temperature - 97.2 f, Pulse - 62 /min, Respiration - 16 /min, O2 Sat - 97 %, Pain - 0, Fatigue - 0 and BP - 142/ 86 mm(hg)(high/). Physical Exam: Alert and oriented female appearing her stated age. Skin in the treatment area is intact without erythema or desquamation. No lymphedema noted. Imaging: Radiation therapy imaging related to accurate target localization (i.e. KV, MV and CBCT) was reviewed. Appropriate changes, if any, were made to ensure treatment accuracy. Plan: Plan to continue prescribed treatment. Signed by: Jaswant Nair 05/09/2023 2:37:30 PM
--- NOTE | 2023-05-16 14:40 | ONCRAD TMN_ITS ---
Radiation Oncology Weekly Treatment Management Patient: Linette Guerra MR#: [id number] : 1970> Attending Physician: Roddy Bailey Date of Service: 05/16/2023 Referring Physician(s) : Hi Canales M.D. 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 ID: [id number], Energy: 6X, Dose/Fx (cGy): 266.7, #Fx: 14 / 15, Dose Correction (cGy): 0, Total Dose (cGy): 3,733.3, Start Date: 04/27/2023, Elapsed Days: 19 Reason for visit: The patient is being seen today as part of their regularly scheduled weekly on treatment visits to assess for acute toxicities from radiotherapy. Review of Systems: Using Aloe vera moinsturizer. Some breast soreness Vital Signs: BMI - 21.559 kg/m2, Height - 64 in, Weight - 125.6 lbs, Temperature - 96 f, Pulse - 69 /min, Respiration - 18 /min, O2 Sat - 91 % (low), Pain - 7, Fatigue - 0 and BP - 118/ 80 mm(hg). Physical Exam: Minimal breast erythema. Imaging: Radiation therapy imaging related to accurate target localization (i.e. KV, MV and CBCT) was reviewed. Appropriate changes, if any, were made to ensure treatment accuracy. Plan: Good tolerance of treatment. Continue treatment as planned. Add OTC APAP for breast pain. Completes treatment this week. Signed by: Roddy Bailey 05/16/2023 2:38:00 PM
--- NOTE | 2023-05-18 10:07 | N.ONRD TS_ITS ---
Radiation Oncology Treatment Summary Patient: Linette>Charlie MR#: [id number] : 1970> Age: 52> Sex: Female Dictated by: Roddy Bailey Date of Service: 05/17/2023 Referring Physician(s) : Hi Canales M.D. 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 ID: [id number], Energy: 6X, Dose/Fx (cGy): 266.7, #Fx: 15 / 15, Dose Correction (cGy): 0, Total Dose (cGy): 4,000, Start Date: 04/27/2023, End Date: 05/17/2023, Elapsed Days: 20 Clinical Summary: The patient tolerated RT well. She experienced modest breast erythema treated with aloe vera moisturizer and breast soreness. Plan: End of treatment today. Continue on the above medication until the skin reaction resolves. Follow up in one month. Signed by: Roddy Bailey>05/18/2023 10:06:06 AM <<Signature on File>>
== END 2023-06-01 23:59 | disposition home or self-care (01) ==
PROVIDERS: PCP Nurse Practitioner; Visit Provider Radiology Radiation Oncology
DX: Z51.0 Encounter for antineoplastic radiation therapy (principal); C50.412 Malignant neoplasm of upper-outer quadrant of left female breast; Z17.0 Estrogen receptor positive status [ER+]; G23.2 Striatonigral degeneration; D69.3 Immune thrombocytopenic purpura; L59.8 Other specified disorders of the skin and subcutaneous tissue related to radiation; Z79.899 Other long term (current) drug therapy
CPT/HCPCS: 77336; 77387; 77412; 99024

== ENCOUNTER 2023-05-29 14:32 | Outpatient (CLI) | payer MEDICAID, SELFPAY ==
--- NOTE | 2023-05-29 14:30 | XR_ITS ---
WS: [id number] SCREENING DEXA SCAN [facility] CLINICAL INFORMATION: breast cancer, ai use COMPARISON: None. FINDINGS: The L1-L4 bone mineral density measures 0.716 g/cm2. This corresponds to a T score score of -3.9 and Z score of -2.8. Left femoral neck bone mineral density measures 0.658 g/cm2. This corresponds to a T score of -2.8 an d Z score of -1.9. Right femoral neck bone mineral density measures 0.664 g/cm2. This corresponds to a T score -2.7of an d Z score of -1.9. Mean femoral neck bone mineral density measures 0.661 g/cm2. This corresponds to a T score of -2.7 an d Z score of -1.9. IMPRESSION: Osteoporosis lumbar spine. Osteoporosis femoral necks. Patient's FRAX calculated 10 year probability for major osteoporotic fracture is 28.8% and osteoporotic hip fracture is 13.2%.
== END 2023-05-29 14:33 | disposition home or self-care (01) ==
PROVIDERS: PCP Nurse Practitioner; Visit Provider Internal Medicine Medical Oncology
DX: Z13.820 Encounter for screening for osteoporosis (principal); Z79.811 Long term (current) use of aromatase inhibitors; M81.0 Age-related osteoporosis without current pathological fracture; C50.919 Malignant neoplasm of unspecified site of unspecified female breast
CPT/HCPCS: 77080

== ENCOUNTER 2023-06-06 13:16 | Oncology outpatient (recurring) (ONCR) | payer MEDICAID, SELFPAY ==
--- NOTE | 2023-06-06 16:07 | ONCRAD EPV_ITS ---
Radiation Oncology Established Patient Visit Patient: Linette Plummer [id number] : 1970> Age: 52> Sex: Female> Dictated by: Theodore Morales Date of Service: 06/06/2023 Referring Physician(s) : Hi Canales M.D. 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 She had a good response to treatment with RhoD and prednisone. She was able to taper off prednisone as of December 2002. During subsequent followup she had just one brief drop in her platelet count, but with spontaneous recovery. Beginning in the early part of 2009 she had a significant decline in her performance status associated with progressive neurologic symptoms. She was seen by Dr. 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 She has been on treatment with carbidopa/levodopa. She became very debilitated as a result of that illness. She has lived with her father, as she was no longer able to function independently. Her other medical illnesses include hypertension, type II diabetes, GERD, and chronic anxiety. In November 2018 she suffered a distal radius and ulna fracture as result of a fall at home. She underwent open reduction and internal fixation for the fracture on 12/19/2018. She is a nonsmoker. She is seen for a followup visit. She has been feeling a little better lately, though she continues to have very limited activity. ECOG score is 3. She has good appetite. She has no fever, night sweats, or hot flashes. She has not had sore mouth or throat. She has just occasional cough. She does have some shortness of breath, but her breathing overall is better. She still occasionally has chest pain. She currently has no GI complaints. Bowel function has been adequate with a stool softener. Bladder function also has been okay. She has pain in both knees, which is chronic. She does not complain of headache. She reports improvement in her dizziness. She has no numbness/paresthesia or other focal neurologic symptoms. Radiotherapy to Date: Course: Breast 2022,Treatment Site: Lt [id number],Ref. ID: [id number],Energy: 6X, Dose/Fx (cGy): 266.7, #Fx: 15 , Dose Correction (cGy): 0, Total Dose (cGy): 4,000, Start Date: 04/27/2023, End Date: 05/17/2023, Elapsed Days: 20 Current History: Current Medications: Acetaminophen, allergy Relief (Cetirizine), aLPRAZolam, amantadine HCl, amLODIPine Besylate, ascorbic Acid, carbidopa-Levodopa, cholecalciferol, cVS Omeprazole, cVS Omeprazole, docusate Sodium, fluzone, glipiZIDE, glyBURIDE, guaiFENesin, hYDROcodone-Acetaminophen, insulin Detemir, meclizine HCl, metoprolol Tartrate, metoprolol Tartrate, ondansetron HCl, pantoprazole Sodium, solifenacin Succinate, traMADol HCl, triamterene-HCTZ, xanax. Allergies: Sulfamethoxazole-Trimethoprim, Penicillin V Potassium, Cipro and NONSTEROIDAL ANTI-INFLAMMATORIES. Current Complaints / Review of Systems: . She returns for follow-up accompanied by her father. She is in good spirits and has no complaints. She denies any difficulty with her breast at all. She denies pain, skin discomfort or swelling. Vital Signs: Performed on 06/06/2023 1:29 PM BMI - 20.701 kg/m2, Height - 64 in, Weight - 120.6 lbs, Temperature - 97.6 f, Pulse - 70 /min, Respiration - 18 /min, O2 Sat - 99 %, Pain - 0, Fatigue - 0 and BP - 127. HEENT: Normocephalic, atraumatic. NECK: Supple without supraclavicular or jugular lymphadenopathy. LUNGS: Clear to auscultation bilaterally without rales, rhonchi or wheeze. HEART: Regular rate and rhythm, normal S1 and S2 without murmur, gallop or rub. Breasts: The left breast has an excellent cosmetic result. There is no residual erythema or edema. No masses or tenderness detected on palpation of the breast. The tumor bed is soft and without induration, nodularity, or mass. MUSCULOSKELETAL: No tenderness or percussion pain over the axial skeleton, scapulae or pelvis. ABDOMEN: Soft, nontender, nondistended without masses or organomegaly. EXTREMITIES: No peripheral edema is identified. No lymphedema of the right arm or hand. Good range of motion in the arm at the shoulder. Performance Status: 40 Lab: None pending. Pathology: Primary, g23.2 - striatonigral degeneration, Diagnosed 07/11/2012 (active), Primary, d69.3 - immune thrombocytopenic purpura, Diagnosed 1999 (active), Secondary, 300.00 - anxiety state, unspecified, Diagnosed 07/11/2012 (active), Secondary, 401.1 - benign essential hypertension, Diagnosed 07/11/2012 (active) and Secondary, 530.81 - esophageal reflux, Diagnosed 07/11/2012 (active). Imaging: None. Impression: She has an excellent cosmetic result and is asymptomatic from the breast cancer. She will return for follow-up in 6 months. Signed by: 06/06/2023 4:05:55 PM <<Signature on File>> Time spent with patient: CPT Code: CPT Code:
== END 2023-07-01 23:59 | disposition home or self-care (01) ==
LOC: ONCMED 13:16
PROVIDERS: Absent Provider Specialist; PCP Nurse Practitioner; Visit Provider Internal Medicine Medical Oncology
DX: C50.412 Malignant neoplasm of upper-outer quadrant of left female breast (principal); Z17.0 Estrogen receptor positive status [ER+]
CPT/HCPCS: 99024; 99215

== ENCOUNTER → 2023-07-20 10:39 | Outpatient (BNVA) | payer MEDICAID, SELFPAY | PROVIDERS: PCP Nurse Practitioner; Visit Provider Internal Medicine Medical Oncology | DX: E55.9 Vitamin D deficiency, unspecified (principal); E11.65 Type 2 diabetes mellitus with hyperglycemia; C50.412 Malignant neoplasm of upper-outer quadrant of left female breast; M81.0 Age-related osteoporosis without current pathological fracture | CPT/HCPCS: 80053; 80061; 82306; 83036; 85025 ==

== ENCOUNTER 2023-07-24 10:01 | Oncology outpatient (recurring) (ONCR) | payer MEDICAID, SELFPAY ==
[2023-07-24] MEDS: lidocaine 1% INJ 20 mL MDV (mL) SUBCUT (11:43)
[2023-07-24] MEDS: goserelin acetate 3.6 mg Implant SUBCUT (12:08)
[2023-07-24 12:10] VITALS: BP 131/86; PULSE 70; RESP 18; TEMP 36.7; O2SAT 95
== END 2023-08-01 23:59 | disposition home or self-care (01) ==
PROVIDERS: Absent Provider Specialist; PCP Nurse Practitioner; Visit Provider Internal Medicine Medical Oncology
DX: C50.412 Malignant neoplasm of upper-outer quadrant of left female breast (principal); Z17.0 Estrogen receptor positive status [ER+]; Z51.0 Encounter for antineoplastic radiation therapy; G23.2 Striatonigral degeneration; D69.3 Immune thrombocytopenic purpura; L59.8 Other specified disorders of the skin and subcutaneous tissue related to radiation; Z79.899 Other long term (current) drug therapy; N64.4 Mastodynia; Z79.891 Long term (current) use of opiate analgesic
CPT/HCPCS: 96372; 99214; J9202

== ENCOUNTER 2023-08-21 09:41 | Oncology outpatient (recurring) (ONCR) | payer MEDICAID, SELFPAY ==
[2023-08-21 10:36] LABS: Basophils # 0.1 10^3/uL (0.0-0.1); Basophils % 0.9 %; Eosinophils # 0.7 10^3/uL (0.0-0.8); Eosinophils % 10.4 %; Hematocrit 51.8 % (36-47); Lymphocytes # 0.8 10^3/uL (0.8-4.8); Lymphocytes % 10.7 %; Mean Corpuscular HGB Conc 30.5 g/dL (30-55); Mean Corpuscular Hemoglobin 26.9 pg (27-33); Mean Corpuscular Volume 88.1 fl (85-98); Mean Platelet Volume 12.9 fL (7.4-10.4); Monocytes # 0.4 10^3/uL (0.2-0.9); Monocytes % 6.2 %; Neutrophils # 4.99 10^3/uL (1.8-7.7); Neutrophils % 71.4 %; Nucleated Red Blood Cells % 0 %; Platelet Count 204 10^3/cmm (157-399); Red Blood Count 5.88 10^6/uL (3.85-5.65); Red Cell Distribution Width 14.8 % (12.1-15.1); White Blood Count 6.99 10^3/uL (3.29-11.43)
[2023-08-21 10:55] LABS: Alanine Aminotransferase 16 U/L (0-33); Albumin Level 4.1 g/dL (3.5-5.2); Alkaline Phosphatase 127 U/L (35-105); Anion Gap 15.6 (5-19); Aspartate Amino Transferase 15 U/L (0-32); Blood Urea Nitrogen 16 mg/dL (6-20); Calcium 9.7 mg/dL (8.5-10.5); Carbon Dioxide 26 mmol/L (22-29); Chloride 105 mmol/L (98-107); Globulin 2.3 g/dL (1.3-4.6); Glomerular Filtration Rate 74.7 mL/min (90-130); Glucose 202 mg/dL (65-115); Osmolality Calculated 301 mOsm/kg (285-295); Potassium 4.6 mmol/L (3.5-5.1); Sodium 142 mmol/L (136-145); Total Bilirubin 0.5 mg/dL (0.15-1.2); Total Protein 6.4 g/dL (6.6-8.7)
[2023-08-21 11:36] LABS: Slide Review Slide Review Perform
[2023-08-21] MEDS: lidocaine 1% INJ 20 mL MDV (mL) SUBCUT (12:29)
[2023-08-21] MEDS: goserelin acetate 3.6 mg Implant SUBCUT (12:44)
== END 2023-08-31 23:59 | disposition home or self-care (01) ==
PROVIDERS: Absent Provider Specialist; PCP Nurse Practitioner; Visit Provider Internal Medicine Medical Oncology
DX: C50.412 Malignant neoplasm of upper-outer quadrant of left female breast (principal); Z17.0 Estrogen receptor positive status [ER+]; Z51.0 Encounter for antineoplastic radiation therapy; G23.2 Striatonigral degeneration; D69.3 Immune thrombocytopenic purpura; L59.8 Other specified disorders of the skin and subcutaneous tissue related to radiation; Z79.899 Other long term (current) drug therapy; N64.4 Mastodynia; Z79.891 Long term (current) use of opiate analgesic; Z51.11 Encounter for antineoplastic chemotherapy
CPT/HCPCS: 80053; 85025; 96372; 96402; 99214; J9202

== ENCOUNTER 2023-09-21 12:20 | Oncology outpatient (recurring) (ONCR) | payer MEDICAID, SELFPAY ==
[2023-09-21] MEDS: lidocaine 1% INJ 20 mL MDV (mL) SUBCUT (13:43)
[2023-09-21] MEDS: goserelin acetate 3.6 mg Implant SUBCUT (13:59)
--- NOTE | 2023-09-21 14:42 | XR_ITS ---
WS: [id number] RIGHT KNEE: 2 VIEW(S) TECHNIQUE: AP and lateral. HISTORY: knee pain; breast cancer COMPARISON: None available. No fracture or dislocation. No joint space narrowing or osteophytes. No joint effusion. No soft tissue abnormality. IMPRESSION: Normal RIGHT knee.
== END 2023-10-01 23:59 | disposition home or self-care (01) ==
PROVIDERS: Absent Provider Specialist; PCP Nurse Practitioner; Visit Provider Internal Medicine Medical Oncology
DX: Z51.11 Encounter for antineoplastic chemotherapy (principal); C50.412 Malignant neoplasm of upper-outer quadrant of left female breast; Z17.0 Estrogen receptor positive status [ER+]; Z51.0 Encounter for antineoplastic radiation therapy; G23.2 Striatonigral degeneration; D69.3 Immune thrombocytopenic purpura; L59.8 Other specified disorders of the skin and subcutaneous tissue related to radiation; Z79.899 Other long term (current) drug therapy; N64.4 Mastodynia; Z79.891 Long term (current) use of opiate analgesic; Z53.9 Procedure and treatment not carried out, unspecified reason
CPT/HCPCS: 73560; 96372; 96402; 99214; J9202

== ENCOUNTER → 2023-11-15 13:38 | Outpatient (BNVA) | payer MEDICAID, SELFPAY | PROVIDERS: PCP Nurse Practitioner; Visit Provider Nurse Practitioner | DX: N39.3 Stress incontinence (female) (male) (principal); E55.9 Vitamin D deficiency, unspecified; K59.01 Slow transit constipation; K21.9 Gastro-esophageal reflux disease without esophagitis; E11.65 Type 2 diabetes mellitus with hyperglycemia; I10 Essential (primary) hypertension | CPT/HCPCS: 82607; 83036 ==

== ENCOUNTER 2023-11-30 14:00 | Oncology outpatient (recurring) (ONCR) | payer MEDICAID, SELFPAY ==
[2023-11-02] MEDS: lidocaine 1% INJ 20 mL MDV (mL) SUBCUT (15:06)
[2023-11-02] MEDS: goserelin acetate 3.6 mg Implant 3.60000000000000009 MG SUBCUT (15:23)
[2023-11-02 15:57] VITALS: BP 126/76; PULSE 70; RESP 17; TEMP 37.1; O2SAT 95
[2023-11-02 16:01] LABS: Basophils # 0.1 10^3/uL (0.0-0.1); Basophils % 0.8 %; Eosinophils # 0.4 10^3/uL (0.0-0.8); Eosinophils % 6.9 %; Hematocrit 50.6 % (36-47); Lymphocytes % 17.4 %; Mean Corpuscular HGB Conc 30.8 g/dL (30-55); Mean Corpuscular Hemoglobin 27.3 pg (27-33); Mean Corpuscular Volume 88.5 fl (85-98); Mean Platelet Volume 12.4 fL (7.4-10.4); Monocytes # 0.5 10^3/uL (0.2-0.9); Monocytes % 8.4 %; Neutrophils # 3.92 10^3/uL (1.8-7.7); Neutrophils % 66.2 %; Nucleated Red Blood Cells % 0 %; Platelet Count 207 10^3/cmm (157-399); Red Blood Count 5.72 10^6/uL (3.85-5.65); Red Cell Distribution Width 14.9 % (12.1-15.1); White Blood Count 5.93 10^3/uL (3.29-11.43)
[2023-11-02 17:04] LABS: Alanine Aminotransferase 12 U/L (0-33); Albumin Level 4.1 g/dL (3.5-5.2); Alkaline Phosphatase 128 U/L (35-105); Aspartate Amino Transferase 11 U/L (0-32); Blood Urea Nitrogen 21 mg/dL (6-20); Calcium 9.5 mg/dL (8.5-10.5); Carbon Dioxide 26 mmol/L (22-29); Chloride 106 mmol/L (98-107); Globulin 2.4 g/dL (1.3-4.6); Glomerular Filtration Rate 104.2 mL/min (90-130); Glucose 130 mg/dL (65-115); Osmolality Calculated 305 mOsm/kg (285-295); Sodium 145 mmol/L (136-145); Total Bilirubin 0.4 mg/dL (0.15-1.2); Total Protein 6.5 g/dL (6.6-8.7)
[2023-11-02 17:12] LABS: Anion Gap 17.4 (5-19); Potassium 4.4 mmol/L (3.5-5.1)
[2023-11-30] MEDS: lidocaine 1% INJ 20 mL SUBCUT (14:24)
[2023-11-30] MEDS: goserelin acetate 3.6 mg Implant 3.60000000000000009 MG SUBCUT (14:37)
[2023-11-30] MEDS: denosumab 60 mg SDV SUBCUT (14:58)
[2023-11-30 15:01] VITALS: BP 129/83; PULSE 72; TEMP 36.7; O2SAT 97
== END 2023-11-30 23:59 | disposition home or self-care (01) ==
PROVIDERS: Nurse Practitioner Family; Absent Provider Specialist; PCP Nurse Practitioner; Visit Provider Internal Medicine Medical Oncology
DX: Z51.11 Encounter for antineoplastic chemotherapy; C50.412 Malignant neoplasm of upper-outer quadrant of left female breast; M81.0 Age-related osteoporosis without current pathological fracture; Z53.9 Procedure and treatment not carried out, unspecified reason
CPT/HCPCS: 36415; 80053; 85025; 96372; 96402; J0897; J9202

== ENCOUNTER 2023-12-28 13:15 | Oncology outpatient (recurring) (ONCR) | payer MEDICAID, SELFPAY ==
--- NOTE | 2023-12-13 13:49 | ONCRAD EPV_ITS ---
Radiation Oncology Established Patient Visit Patient: Nnamdi Sue [id number] : 1970 Age: 53 Sex: Female Dictated by: Jaswant Nair Date of Service: 12/13/2023 Referring Physician(s) : Hi Canales M.D. 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 This is a 51 year-old woman whom I previously treated for autoimmune thrombocytopenia. During follow-up she developed a neurologic disorder consistent with multisystem degeneration. She had presented in 1999 with severe thrombocytopenia. She had a good response to treatment with RhoD and prednisone. She was able to taper off prednisone as of December 2002. During subsequent followup she had just one brief drop in her platelet count, but with spontaneous recovery. Beginning in the early part of 2009 she had a significant decline in her performance status associated with progressive neurologic symptoms. She was seen by Dr. 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 She has been on treatment with carbidopa/levodopa. She became very debilitated as a result of that illness. She has lived with her father, as she was no longer able to function independently. Her other medical illnesses include hypertension, type II diabetes, GERD, and chronic anxiety. In November 2018 she suffered a distal radius and ulna fracture as result of a fall at home. She underwent open reduction and internal fixation for the fracture on 12/19/2018. She is a nonsmoker. She is seen for a followup visit. She has been feeling a little better lately, though she continues to have very limited activity. ECOG score is 3. She has good appetite. She has no fever, night sweats, or hot flashes. She has not had sore mouth or throat. She has just occasional cough. She does have some shortness of breath, but her breathing overall is better. She still occasionally has chest pain. She currently has no GI complaints. Bowel function has been adequate with a stool softener. Bladder function also has been okay. She has pain in both knees, which is chronic. She does not complain of headache. She reports improvement in her dizziness. She has no numbness/paresthesia or other focal neurologic symptoms. Radiotherapy to Date: Course: Breast 2022, Treatment Site: Lt [id number], Ref. ID: [id number], Energy: 6X, Dose/Fx (cGy): 266.7, #Fx: 15 , Dose Correction (cGy): 0, Total Dose Delivered (cGy): 4,000, Start Date: 04/27/2023, End Date: 05/17/2023, Elapsed Days: 20 Current History: Current Medications: Acetaminophen, allergy Relief (Cetirizine), aLPRAZolam, amantadine HCl, amLODIPine Besylate, ascorbic Acid, carbidopa-Levodopa, cholecalciferol, cVS Omeprazole, cVS Omeprazole, docusate Sodium, fluzone, glipiZIDE, glyBURIDE, guaiFENesin, hYDROcodone-Acetaminophen, insulin Detemir, meclizine HCl, metoprolol Tartrate, metoprolol Tartrate, ondansetron HCl, pantoprazole Sodium, solifenacin Succinate, traMADol HCl, triamterene-HCTZ, xanax. Allergies: Sulfamethoxazole-Trimethoprim, Penicillin V Potassium, Cipro and NONSTEROIDAL ANTI-INFLAMMATORIES. Current Complaints / Review of Systems: . Patient denies any pain in the breast or edema. She notes some darkening of the skin around the areola of the left breast. Patient is present today with her father who is her caregiver. Vital Signs: Performed on 12/13/2023 1:12 PM BMI - 21.8 kg/m2, Height - 64 in, Weight - 127 lbs, Temperature - 98 f, Pulse - 62 /min, Respiration - 16 /min, O2 Sat - 98 %, Pain - 0, Fatigue - 0 and BP - 138/ 86 mm(hg). Physical Exam: General: Alert and oriented x 3. No acute distress. HEENT: Normocephalic, atraumatic. Extraocular Movements Intact: Pupils Equal, Round, Reactive to Light and Accommodation: Sclerae anicteric. Oral cavity is clear without lesions, masses or ulcers. NECK: Supple without supraclavicular or jugular lymphadenopathy. LUNGS: Clear to auscultation bilaterally without rales, rhonchi or wheeze. HEART: Regular rate and rhythm, normal S1 and S2 without murmur, gallop or rub. BREAST: Left breast is intact without erythema. She has some dry desquamation along the areola of the left breast. No palpable nodules in the left breast or axilla. Surgical incisions are well-healed. No lymphedema is noted. MUSCULOSKELETAL: No tenderness or percussion pain over the axial skeleton, scapulae or pelvis. ABDOMEN: Soft, nontender, nondistended without masses or organomegaly. Bowell sounds are present. EXTREMITIES: No peripheral edema is identified. Limited motor and sensory examination are grossly intact and symmetric bilaterally. NEUROLOGIC: Cranial nerves II ???XII are grossly intact. Normal sensation, strength 5/5 in all extremities, normal gait, no ataxia. Performance Status: Lab: None pending. Pathology: Primary, g23.2 - striatonigral degeneration, Diagnosed 07/11/2012 (active) , Primary, d69.3 - immune thrombocytopenic purpura, Diagnosed 1999 (active) , Secondary, 300.00 - anxiety state, unspecified, Diagnosed 07/11/2012 (active) , Secondary, 401.1 - benign essential hypertension, Diagnosed 07/11/2012 (active) and Secondary, 530.81 - esophageal reflux, Diagnosed 07/11/2012 (active) . Imaging: See HPI Impression: The patient has recovered well from the acute effects of her extremity radiation therapy. She has slight darkening of the skin of the left areola. We discussed the option of utilizing hydroperoxide and water followed by aloe vera as a moisturizer. Baseline follow-up mammogram has been ordered. The process of breast self examination has been reviewed with the patient. Signed by: 12/13/2023 1:47:57 PM <<Signature on File>> Time spent with patient: 30 min CPT Code: CPT Code:
[2023-12-28 13:00] VITALS: BP 134/86; PULSE 75; RESP 16; TEMP 36.6; O2SAT 98
[2023-12-28 13:22] LABS: Basophils % 0.5 %; Eosinophils # 0.2 10^3/uL (0.0-0.8); Eosinophils % 3.6 %; Hematocrit 42.7 % (36-47); Lymphocytes # 0.9 10^3/uL (0.8-4.8); Lymphocytes % 13.9 %; Mean Corpuscular HGB Conc 30.7 g/dL (30-55); Mean Corpuscular Hemoglobin 26.8 pg (27-33); Mean Corpuscular Volume 87.5 fl (85-98); Mean Platelet Volume 12.2 fL (7.4-10.4); Monocytes # 0.4 10^3/uL (0.2-0.9); Monocytes % 6.6 %; Neutrophils # 4.65 10^3/uL (1.8-7.7); Neutrophils % 73.7 %; Nucleated Red Blood Cells % 0 %; Platelet Count 237 10^3/cmm (157-399); Red Blood Count 4.88 10^6/uL (3.85-5.65); Red Cell Distribution Width 15.1 % (12.1-15.1); White Blood Count 6.32 10^3/uL (3.29-11.43)
[2023-12-28 13:45] LABS: Alanine Aminotransferase 8 U/L (0-33); Albumin Level 3.5 g/dL (3.5-5.2); Alkaline Phosphatase 105 U/L (35-105); Anion Gap 13.7 (5-19); Aspartate Amino Transferase 9 U/L (0-32); Blood Urea Nitrogen 15 mg/dL (6-20); Calcium 8.7 mg/dL (8.5-10.5); Carbon Dioxide 25 mmol/L (22-29); Chloride 113 mmol/L (98-107); Globulin 2.7 g/dL (1.3-4.6); Glomerular Filtration Rate 128.1 mL/min (90-130); Glucose 206 mg/dL (65-115); Osmolality Calculated 311 mOsm/kg (285-295); Potassium 4.7 mmol/L (3.5-5.1); Sodium 147 mmol/L (136-145); Total Bilirubin 0.3 mg/dL (0.15-1.2); Total Protein 6.2 g/dL (6.6-8.7)
[2023-12-28] MEDS: lidocaine 1% INJ 20 mL MDV (mL) SUBCUT (15:08)
[2023-12-28] MEDS: goserelin acetate 3.6 mg Implant 3.60000000000000009 MG SUBCUT (15:21)
== END 2023-12-31 23:59 | disposition home or self-care (01) ==
PROVIDERS: Internal Medicine Medical Oncology; PCP Nurse Practitioner; Visit Provider Radiology Radiation Oncology
DX: Z53.9 Procedure and treatment not carried out, unspecified reason; C50.412 Malignant neoplasm of upper-outer quadrant of left female breast; M25.561 Pain in right knee; Z79.899 Other long term (current) drug therapy
CPT/HCPCS: 80053; 85025; 96372; 96402; 99213; 99214; J9202

== ENCOUNTER 2024-01-03 12:51 | Outpatient (CLI) | payer MEDICAID, SELFPAY ==
--- NOTE | 2024-01-03 14:00 | MM_ITS ---
WS: [id number] BILATERAL 2D DIGITAL DIAGNOSTIC MAMMOGRAPHY WITH CAD CLINICAL INFORMATION: ANNUAL - HX BR CA HISTORY: LEFT breast lumpectomy COMPARISON: 2021 and 2022 TECHNIQUE: Bilateral CC, MLO, and ML views. FINDINGS: Scattered fibroglandular densities bilaterally. Postoperative changes LEFT breast lumpectomy with par enchymal fibrosis. Few incidental punctate calcifications RIGHT breast. No suspicious focal mass, asymmetry, calcifications, or architectural distortion. No evidence of shan gnancy. IMPRESSION: MM/[place] [id number] BI-RADS: 2-Benign FOLLOW UP: 1 Year Follow-up Recommend return to annual diagnostic mammography.
== END 2024-01-03 12:52 | disposition home or self-care (01) ==
LOC: RAD 12:52
PROVIDERS: PCP Nurse Practitioner; Visit Provider Radiology Radiation Oncology
DX: C50.412 Malignant neoplasm of upper-outer quadrant of left female breast (principal); R92.30 Dense breasts, unspecified
CPT/HCPCS: 77066

== ENCOUNTER 2024-01-25 13:26 | Oncology outpatient (recurring) (ONCR) | payer MEDICAID, SELFPAY ==
[2024-01-25] MEDS: lidocaine 1% INJ 20 mL MDV (mL) SUBCUT (14:23)
[2024-01-25] MEDS: goserelin acetate 3.6 mg Implant 3.60000000000000009 MG SUBCUT (14:35)
== END 2024-01-30 23:59 | disposition home or self-care (01) ==
LOC: ONCMED 13:28
PROVIDERS: PCP Nurse Practitioner; Visit Provider Radiology Radiation Oncology
DX: Z79.818 Long term (current) use of other agents affecting estrogen receptors and estrogen levels; C50.412 Malignant neoplasm of upper-outer quadrant of left female breast; Z51.11 Encounter for antineoplastic chemotherapy
CPT/HCPCS: 96372; 96402; J9202

== ENCOUNTER → 2024-01-31 14:00 | Outpatient (BNVA) | payer MEDICAID, SELFPAY | PROVIDERS: PCP Nurse Practitioner; Visit Provider Nurse Practitioner | DX: E11.9 Type 2 diabetes mellitus without complications | CPT/HCPCS: 80053; 80061; 83036 ==

== ENCOUNTER 2024-02-15 12:38 | Outpatient (CLI) | payer MEDICAID, SELFPAY ==
--- NOTE | 2024-02-15 13:00 | MR_ITS ---
WS: [id number] MRI RIGHT KNEE with and without contrast HISTORY: right knee pain/weakness Multiplanar imaging of the RIGHT knee with and without contrast. MultiHance 13 mL. COMPARISON: Radiograph 09/21/2023 Anterior cruciate ligament: Intact. Posterior cruciate ligament: Intact. Medial collateral ligament: Intact. Posterior lateral corner structures: Intact. Medial menisci: Intact. Normal signal, size and shape. Lateral meniscus: Intact. Normal signal, size and shape. Extensor mechanism: Distal quadriceps tendon and patellar tendons are intact. Fluid and soft tissue: Small suprapatellar joint effusion. Small Parada's cyst. Osseous and articular structures: Patellofemoral compartment: Normal. Medial compartment: Minimal narrowing. No marrow edema or significant loss of cartilage. Lateral compartment: Minimal narrowing of the joint space. No significant loss of cartilage. No marro w edema. No enhancing mass within the bones of the knee. There is mild peripheral enhancement of the suprapate llar joint effusion. MR/MR knee RT wo/w con [id number] IMPRESSION: 1. No meniscal tear. 2. Very minimal narrowing of the medial and lateral compartments. 3. Small joint effusion with peripheral enhancement. This can be seen with sep tic joint or acute synovitis. There is no adjacent soft tissue inflammation. 4. Small Parada's cyst.
[2024-02-15] MEDS: gadobenate dimeglumine 20 mL vial IV (13:37)
== END 2024-02-15 12:39 | disposition home or self-care (01) ==
LOC: RAD 12:38
PROVIDERS: PCP Nurse Practitioner; Visit Provider Nurse Practitioner Family
DX: M25.561 Pain in right knee (principal); M25.461 Effusion, right knee; M71.21 Synovial cyst of popliteal space [Baker], right knee
CPT/HCPCS: 73723; A9577

== ENCOUNTER 2024-02-22 13:42 | Oncology outpatient (recurring) (ONCR) | payer MEDICAID, SELFPAY ==
[2024-02-22] MEDS: lidocaine 1% INJ 20 mL MDV (mL) SUBCUT (14:11)
[2024-02-22] MEDS: goserelin acetate 3.6 mg Implant 3.60000000000000009 MG SUBCUT (14:22)
[2024-02-22 14:37] VITALS: BP 138/89; PULSE 71; RESP 17; TEMP 35.9; O2SAT 98
== END 2024-03-01 23:59 | disposition home or self-care (01) ==
LOC: ONCMED 13:43
PROVIDERS: PCP Nurse Practitioner; Visit Provider Radiology Radiation Oncology
DX: M81.0 Age-related osteoporosis without current pathological fracture
CPT/HCPCS: 96372; 96402; J9202

== ENCOUNTER 2024-03-21 13:30 | Oncology outpatient (recurring) (ONCR) | payer MEDICAID, SELFPAY ==
[2024-03-21] MEDS: lidocaine 1% INJ 20 mL MDV (mL) SUBCUT (14:01)
[2024-03-21 14:23] LABS: Basophils # 0.1 10^3/uL (0.0-0.1); Basophils % 0.8 %; Eosinophils # 0.5 10^3/uL (0.0-0.8); Eosinophils % 5.7 %; Hematocrit 50.4 % (36-47); Lymphocytes # 1.2 10^3/uL (0.8-4.8); Lymphocytes % 15.1 %; Mean Corpuscular Hemoglobin 27.2 pg (27-33); Mean Platelet Volume 12.6 fL (7.4-10.4); Monocytes # 0.7 10^3/uL (0.2-0.9); Monocytes % 8.4 %; Neutrophils # 5.44 10^3/uL (1.8-7.7); Neutrophils % 69.4 %; Nucleated Red Blood Cells % 0 %; Platelet Count 191 10^3/cmm (157-399); Red Blood Count 5.73 10^6/uL (3.85-5.65); Red Cell Distribution Width 15.7 % (12.1-15.1); White Blood Count 7.84 10^3/uL (3.29-11.43)
[2024-03-21 14:48] LABS: Alanine Aminotransferase 17 U/L (0-33); Alkaline Phosphatase 109 U/L (35-105); Anion Gap 14.3 (5-19); Aspartate Amino Transferase 12 U/L (0-32); Blood Urea Nitrogen 19 mg/dL (6-20); Calcium 8.8 mg/dL (8.5-10.5); Carbon Dioxide 25 mmol/L (22-29); Chloride 107 mmol/L (98-107); Globulin 2.5 g/dL (1.3-4.6); Glomerular Filtration Rate 74.5 mL/min (90-130); Glucose 186 mg/dL (65-115); Osmolality Calculated 301 mOsm/kg (285-295); Potassium 4.3 mmol/L (3.5-5.1); Sodium 142 mmol/L (136-145); Total Bilirubin 0.3 mg/dL (0.15-1.2); Total Protein 6.5 g/dL (6.6-8.7)
[2024-03-21 15:04] LABS: Slide Review Slide Review Perform
[2024-03-21] MEDS: goserelin acetate 3.6 mg Implant 3.60000000000000009 MG SUBCUT (16:11)
== END 2024-03-31 23:59 | disposition home or self-care (01) ==
LOC: ONCMED 13:31
PROVIDERS: Nurse Practitioner Family; PCP Nurse Practitioner; Visit Provider Radiology Radiation Oncology
DX: C50.412 Malignant neoplasm of upper-outer quadrant of left female breast; Z79.818 Long term (current) use of other agents affecting estrogen receptors and estrogen levels; Z79.899 Other long term (current) drug therapy; Z86.711 Personal history of pulmonary embolism; G89.29 Other chronic pain; E53.9 Vitamin B deficiency, unspecified
CPT/HCPCS: 36591; 80053; 85025; 96372; 96402; 99214; J9202

== ENCOUNTER → 2024-04-17 13:32 | Outpatient (BNVA) | payer MEDICAID, SELFPAY | PROVIDERS: PCP Nurse Practitioner; Visit Provider Nurse Practitioner | DX: E55.9 Vitamin D deficiency, unspecified (principal); K59.01 Slow transit constipation; K21.9 Gastro-esophageal reflux disease without esophagitis; E11.65 Type 2 diabetes mellitus with hyperglycemia; I10 Essential (primary) hypertension; N39.3 Stress incontinence (female) (male); E11.9 Type 2 diabetes mellitus without complications; J06.9 Acute upper respiratory infection, unspecified; J40 Bronchitis, not specified as acute or chronic; M81.0 Age-related osteoporosis without current pathological fracture; C50.412 Malignant neoplasm of upper-outer quadrant of left female breast | CPT/HCPCS: 80053; 80061; 83036; 85025 ==

== ENCOUNTER 2024-04-22 08:53 | Oncology outpatient (recurring) (ONCR) | payer MEDICAID, SELFPAY ==
[2024-04-22] MEDS: lidocaine 1% INJ 20 mL MDV (mL) SUBCUT (11:16)
[2024-04-22 11:21] LABS: Add Urine Microscopic? YES; Bilirubin Urine Neg (Negative); Blood Urine Neg (Negative); Glucose Urine UA 1+ (Normal); Ketones Urine 1+ (Negative); Leukocyte Esterase Urine Trace (Negative); Nitrate Urine Negative (Negative); Protein Urine Trace (Negative); Specific Gravity, Urine 1.025 (1.005-1.030); Urine Appearance Clear (CLEAR); Urine Color Yellow (Yellow); Urobilinogen Urine Norm (Negative); pH Urine 5 (5-7)
[2024-04-22 11:22] LABS: Add Urine Culture? No; Bacteria Urine TRACE /hpf; Squamous Epithelial Cell Urine 0-4 /hpf (0-5)
[2024-04-22] MEDS: goserelin acetate 3.6 mg Implant SUBCUT (11:31)
== END 2024-05-01 23:59 | disposition home or self-care (01) ==
PROVIDERS: Nurse Practitioner Family; PCP Nurse Practitioner; Visit Provider Radiology Radiation Oncology
DX: Z53.9 Procedure and treatment not carried out, unspecified reason (principal); C50.412 Malignant neoplasm of upper-outer quadrant of left female breast; Z17.0 Estrogen receptor positive status [ER+]; Z92.3 Personal history of irradiation; Z79.818 Long term (current) use of other agents affecting estrogen receptors and estrogen levels; M79.604 Pain in right leg
CPT/HCPCS: 81001; 96372; 96402; 99214; J9202

== ENCOUNTER 2024-05-20 11:15 | Oncology outpatient (recurring) (ONCR) | payer MEDICAID, SELFPAY ==
--- NOTE | 2024-05-15 09:00 | NM_ITS ---
WS: [email or web address] NUCLEAR MEDICINE BONE SCAN Radiopharmaceutical: 24.9 Tc-99m MDP mCi IV Injection site: Antecubital Postinjection imaging delay: 1 hr CLINICAL INFORMATION: bone pain COMPARISON: None. FINDINGS: Bone lesions: Single punctate focus of uptake in the RIGHT femoral neck near the greater trochanter i s nonspecific. Recommend correlation for RIGHT hip pain. Additional diffuse patchy areas of uptake wi thin the LEFT humeral shaft has a suspicious appearance. No other abnormal foci of uptake. Soft tissue contours: Normal. Kidneys: Normal. Other findings: Postoperative changes RIGHT TKA. NM/NM bone scan whole body* [id number] IMPRESSION: 1. Tiny punctate focus of uptake in the RIGHT femoral neck near the greater tr ochanter is nonspecific but metastatic disease not excluded. 2. Additional patchy areas of uptake within the LEFT humeral shaft has a suspi cious appearance concerning for metastatic disease. 3. No other abnormal foci of uptake.
[2024-05-20 11:25] LABS: Basophils % 0.4 %; Nucleated Red Blood Cells % 0 %
[2024-05-20 12:28] LABS: Alanine Aminotransferase 13 U/L (0-33); Albumin Level 3.6 g/dL (3.5-5.2); Alkaline Phosphatase 107 U/L (35-105); Aspartate Amino Transferase 12 U/L (0-32); Blood Urea Nitrogen 23 mg/dL (6-20); Calcium 8.8 mg/dL (8.5-10.5); Carbon Dioxide 19 mmol/L (22-29); Chloride 104 mmol/L (98-107); Globulin 2.4 g/dL (1.3-4.6); Glomerular Filtration Rate 86.9 mL/min (90-130); Glucose 247 mg/dL (65-115); Osmolality Calculated 300 mOsm/kg (285-295); Sodium 139 mmol/L (136-145); Total Bilirubin 0.4 mg/dL (0.15-1.2)
[2024-05-20 12:31] LABS: Anion Gap 20.5 (5-19); Potassium 4.5 mmol/L (3.5-5.1)
[2024-05-20 12:35] LABS: Eosinophils # 0.3 10^3/uL (0.0-0.8); Eosinophils % 2.8 %; Hematocrit 49.1 % (36-47); Lymphocytes # 1.1 10^3/uL (0.8-4.8); Lymphocytes % 11.8 %; Mean Corpuscular HGB Conc 30.3 g/dL (30-55); Mean Corpuscular Volume 88.9 fl (85-98); Monocytes # 0.8 10^3/uL (0.2-0.9); Monocytes % 8.2 %; Neutrophils # 7.07 10^3/uL (1.8-7.7); Neutrophils % 76.3 %; Platelet Count 205 10^3/cmm (157-399); Red Blood Count 5.52 10^6/uL (3.85-5.65); Red Cell Distribution Width 15.9 % (12.1-15.1); White Blood Count 9.27 10^3/uL (3.29-11.43)
[2024-05-20] MEDS: lidocaine 1% INJ 20 mL MDV (mL) SUBCUT (13:41)
[2024-05-20] MEDS: goserelin acetate 3.6 mg Implant SUBCUT (13:52)
== END 2024-06-01 23:59 | disposition home or self-care (01) ==
PROVIDERS: PCP Nurse Practitioner; Visit Provider Nurse Practitioner Family
DX: Z53.9 Procedure and treatment not carried out, unspecified reason (principal); Z51.11 Encounter for antineoplastic chemotherapy; C50.412 Malignant neoplasm of upper-outer quadrant of left female breast; Z17.0 Estrogen receptor positive status [ER+]; Z79.899 Other long term (current) drug therapy; Z79.818 Long term (current) use of other agents affecting estrogen receptors and estrogen levels; M81.0 Age-related osteoporosis without current pathological fracture; Z79.811 Long term (current) use of aromatase inhibitors; M17.11 Unilateral primary osteoarthritis, right knee
CPT/HCPCS: 36415; 78306; 80053; 85025; 96372; 96402; 99214; A9561; J9202

== ENCOUNTER 2024-06-26 10:45 | Oncology outpatient (recurring) (ONCR) | payer MEDICAID, SELFPAY ==
[2024-06-26 11:14] LABS: Basophils % 0.3 %; Eosinophils # 0.3 10^3/uL (0.0-0.8); Hematocrit 50.1 % (36-47); Lymphocytes # 1.1 10^3/uL (0.8-4.8); Lymphocytes % 15.4 %; Mean Corpuscular HGB Conc 30.3 g/dL (30-55); Mean Corpuscular Hemoglobin 26.8 pg (27-33); Mean Corpuscular Volume 88.2 fl (85-98); Mean Platelet Volume 12.1 fL (7.4-10.4); Monocytes # 0.5 10^3/uL (0.2-0.9); Monocytes % 7.6 %; Neutrophils # 4.91 10^3/uL (1.8-7.7); Neutrophils % 72.3 %; Nucleated Red Blood Cells % 0 %; Platelet Count 195 10^3/cmm (157-399); Red Blood Count 5.68 10^6/uL (3.85-5.65); Red Cell Distribution Width 15.9 % (12.1-15.1)
[2024-06-26 11:37] LABS: Alanine Aminotransferase 17 U/L (0-33); Albumin Level 3.9 g/dL (3.5-5.2); Alkaline Phosphatase 105 U/L (35-105); Anion Gap 15.2 (5-19); Aspartate Amino Transferase 12 U/L (0-32); Blood Urea Nitrogen 18 mg/dL (6-20); Calcium 8.9 mg/dL (8.5-10.5); Carbon Dioxide 26 mmol/L (22-29); Chloride 108 mmol/L (98-107); Globulin 2.1 g/dL (1.3-4.6); Glomerular Filtration Rate 86.9 mL/min (90-130); Glucose 186 mg/dL (65-115); Osmolality Calculated 307 mOsm/kg (285-295); Potassium 4.2 mmol/L (3.5-5.1); Sodium 145 mmol/L (136-145); Total Bilirubin 0.3 mg/dL (0.15-1.2)
[2024-06-26] MEDS: lidocaine 1% INJ 20 mL SUBCUT (13:48)
[2024-06-26] MEDS: denosumab 60 mg SDV SUBCUT (14:03)
[2024-06-26] MEDS: goserelin acetate 3.6 mg Implant SUBCUT (14:09)
[2024-06-26 14:24] VITALS: BP 164/92; PULSE 89; RESP 18; TEMP 36.1; O2SAT 99
== END 2024-07-01 23:59 | disposition home or self-care (01) ==
PROVIDERS: PCP Nurse Practitioner; Visit Provider Nurse Practitioner Family
DX: C50.412 Malignant neoplasm of upper-outer quadrant of left female breast (principal); Z51.11 Encounter for antineoplastic chemotherapy; Z79.818 Long term (current) use of other agents affecting estrogen receptors and estrogen levels; Z79.811 Long term (current) use of aromatase inhibitors; Z17.0 Estrogen receptor positive status [ER+]; Z92.3 Personal history of irradiation
CPT/HCPCS: 36415; 80053; 85025; 96401; 96402; 99214; J0897; J9202

== ENCOUNTER → 2024-07-03 13:31 | Outpatient (BNVA) | payer MEDICAID, SELFPAY | PROVIDERS: PCP Nurse Practitioner; Visit Provider Nurse Practitioner | DX: Z79.4 Long term (current) use of insulin (principal); E11.9 Type 2 diabetes mellitus without complications; E11.65 Type 2 diabetes mellitus with hyperglycemia | CPT/HCPCS: 80053; 83036; 84443 ==

== ENCOUNTER 2024-08-08 12:39 | Oncology outpatient (recurring) (ONCR) | payer MEDICAID, SELFPAY ==
[2024-08-08 13:26] LABS: Basophils % 0.4 %; Eosinophils # 0.2 10^3/uL (0.0-0.8); Eosinophils % 3.2 %; Hematocrit 52.5 % (36-47); Lymphocytes # 1.3 10^3/uL (0.8-4.8); Lymphocytes % 17.3 %; Mean Corpuscular HGB Conc 30.1 g/dL (30-55); Mean Corpuscular Volume 89.7 fl (85-98); Mean Platelet Volume 12.9 fL (7.4-10.4); Monocytes # 0.6 10^3/uL (0.2-0.9); Monocytes % 7.8 %; Neutrophils # 5.22 10^3/uL (1.8-7.7); Neutrophils % 70.8 %; Nucleated Red Blood Cells % 0 %; Platelet Count 204 10^3/cmm (157-399); Red Blood Count 5.85 10^6/uL (3.85-5.65); Red Cell Distribution Width 15.4 % (12.1-15.1); White Blood Count 7.39 10^3/uL (3.29-11.43)
[2024-08-08 13:46] LABS: Alanine Aminotransferase 14 U/L (0-33); Albumin Level 3.9 g/dL (3.5-5.2); Alkaline Phosphatase 104 U/L (35-105); Blood Urea Nitrogen 17 mg/dL (6-20); Calcium 8.6 mg/dL (8.5-10.5); Carbon Dioxide 24 mmol/L (22-29); Chloride 106 mmol/L (98-107); Globulin 2.1 g/dL (1.3-4.6); Glomerular Filtration Rate 103.8 mL/min (90-130); Glucose 231 mg/dL (65-115); Osmolality Calculated 303 mOsm/kg (285-295); Sodium 142 mmol/L (136-145); Total Bilirubin 0.4 mg/dL (0.15-1.2)
[2024-08-08 13:51] LABS: Anion Gap 16.4 (5-19); Aspartate Amino Transferase 13 U/L (0-32); Potassium 4.4 mmol/L (3.5-5.1)
[2024-08-08] MEDS: lidocaine 1% INJ 20 mL SUBCUT (14:25)
[2024-08-08] MEDS: goserelin acetate 3.6 mg Implant SUBCUT (14:33)
== END 2024-08-31 23:59 | disposition home or self-care (01) ==
PROVIDERS: Nurse Practitioner; PCP Nurse Practitioner; Visit Provider Nurse Practitioner Family
DX: Z51.11 Encounter for antineoplastic chemotherapy (principal); C50.412 Malignant neoplasm of upper-outer quadrant of left female breast; Z79.899 Other long term (current) drug therapy
CPT/HCPCS: 36415; 80053; 85025; 96372; 96402; J9202

== ENCOUNTER 2024-09-03 09:26 | Outpatient (CLI) | payer MEDICAID, SELFPAY ==
--- NOTE | 2024-09-03 09:30 | NM_ITS ---
WS: [id number] NUCLEAR MEDICINE WHOLE BODY BONE SCAN HISTORY: Abnormal bone scan from 05/15/24. COMPARISON: Bone scan 05/15/2024, follow-up RIGHT femoral neck and LEFT humeral diaphysis. TECHNIQUE: The patient was injected with 25.6 mCi of Technetium 99m HDP and serial whole-body scintig magen have been performed with anterior and posterior images. Urinary bladder is overdistended. Patient was unable to void for this examination. Reidentified are the 2 intermediate foci of increased uptake in the RIGHT proximal femur which are un changed and no progression. The patchy increased uptake throughout the LEFT humeral diaphysis is less apparent but still slightly greater than on the RIGHT with no progression. No rib abnormalities. No spine abnormalities. Reidentified is increased uptake involving the RIGHT knee joint. Increased uptake in a distribution c onsistent with the synovium of the RIGHT knee surrounding the femoral condyles. This is similar to th e prior study. Prior MRI was also obtained which demonstrated synovial enhancement. Normal uptake in the kidneys. NM/NM bone scan whole body* [id number] IMPRESSION: 1. No interval change in the proximal RIGHT femur and the LEFT humerus since . Less likely metastatic disease with no interval change. 2. There is continued increased uptake in a synovial distribution involving th e RIGHT knee. Possibility of septic joint or synovitis should be considered. Th is was also described on a prior MRI knee of 02/15/2024. No progression since th e prior bone scan of 05/15/2024.
== END 2024-09-03 09:27 | disposition home or self-care (01) ==
LOC: RAD 09:27
PROVIDERS: PCP Nurse Practitioner; Visit Provider Nurse Practitioner Family
DX: C50.412 Malignant neoplasm of upper-outer quadrant of left female breast (principal); R93.7 Abnormal findings on diagnostic imaging of other parts of musculoskeletal system
CPT/HCPCS: 78306; A9561

== ENCOUNTER 2024-09-19 09:14 | Oncology outpatient (recurring) (ONCR) | payer MEDICAID, SELFPAY ==
[2024-09-19 09:50] LABS: Basophils % 0.3 %; Eosinophils # 0.2 10^3/uL (0.0-0.8); Eosinophils % 2.8 %; Hematocrit 49.7 % (36-47); Lymphocytes # 1.1 10^3/uL (0.8-4.8); Lymphocytes % 15.7 %; Mean Corpuscular Hemoglobin 27.5 pg (27-33); Mean Corpuscular Volume 88.6 fl (85-98); Monocytes # 0.5 10^3/uL (0.2-0.9); Monocytes % 6.7 %; Neutrophils % 74.1 %; Nucleated Red Blood Cells % 0 %; Platelet Count 159 10^3/cmm (157-399); Red Blood Count 5.61 10^6/uL (3.85-5.65); Red Cell Distribution Width 15.4 % (12.1-15.1); White Blood Count 6.75 10^3/uL (3.29-11.43)
[2024-09-19 10:12] LABS: Alanine Aminotransferase 22 U/L (0-33); Alkaline Phosphatase 109 U/L (35-105); Anion Gap 13.4 (5-19); Aspartate Amino Transferase 16 U/L (0-32); Blood Urea Nitrogen 14 mg/dL (6-20); Calcium 9.2 mg/dL (8.5-10.5); Carbon Dioxide 24 mmol/L (22-29); Chloride 108 mmol/L (98-107); Globulin 2.1 g/dL (1.3-4.6); Glomerular Filtration Rate 103.8 mL/min (90-130); Glucose 271 mg/dL (65-115); Osmolality Calculated 302 mOsm/kg (285-295); Potassium 4.4 mmol/L (3.5-5.1); Sodium 141 mmol/L (136-145); Total Bilirubin 0.3 mg/dL (0.15-1.2); Total Protein 6.1 g/dL (6.6-8.7)
[2024-09-19] MEDS: lidocaine 1% INJ 20 mL SUBCUT (11:37)
[2024-09-19] MEDS: goserelin acetate 3.6 mg Implant SUBCUT (11:54)
== END 2024-10-01 23:59 | disposition home or self-care (01) ==
PROVIDERS: Nurse Practitioner Family; PCP Nurse Practitioner; Visit Provider Internal Medicine
DX: M81.0 Age-related osteoporosis without current pathological fracture; Z79.818 Long term (current) use of other agents affecting estrogen receptors and estrogen levels
CPT/HCPCS: 36415; 80053; 85025; 96372; 96402; 99214; J9202

== ENCOUNTER 2024-10-29 12:00 | Oncology outpatient (recurring) (ONCR) | payer MEDICAID, SELFPAY ==
--- NOTE | 2024-10-24 14:30 | MM_ITS ---
WS: [email or web address] LEFT 3D TOMOSYNTHESIS DIGITAL MAMMOGRAPHY WITH CAD CLINICAL INFORMATION: nodule/thickness at 9 o'clock position left breast HISTORY: LEFT breast pain COMPARISON: 01/03/2024 TECHNIQUE: 3 views of the left breast were obtained. FINDINGS: Scattered fibroglandular densities of the left breast. Prior postoperative changes LEFT breast lumpec laci with parenchymal fibrosis. Treatment related changes LEFT breast. Area of pain indicated with a marker. Normal underlying parenchymal tissue in this area. Ultrasound is pending. ULTRASOUND BREAST LEFT TECHNIQUE: Ultrasound left breast focused area of concern. CLINICAL INFORMATION: nodule/thickness at 9 o'clock position left breast FINDINGS: Ultrasound LEFT breast area of concern at the 9 o'clock position. Normal underlying parenchymal tissu e. Incidental intramammary lymph node measuring 9 mm at the 9 o'clock position 5 cm from the nipple. No suspicious findings to target for biopsy. MM/MM diag LT tomosynthesis [id number] IMPRESSION: DENSITY: There are scattered areas of fibroglandular density. BI-RADS: 2 - Benign. FOLLOW UP: 1 Year Follow-up Recommend return to annual diagnostic mammography.
--- NOTE | 2024-10-24 15:11 | US_ITS ---
WS: [email or web address] LEFT 3D TOMOSYNTHESIS DIGITAL MAMMOGRAPHY WITH CAD CLINICAL INFORMATION: nodule/thickness at 9 o'clock position left breast HISTORY: LEFT breast pain COMPARISON: 01/03/2024 TECHNIQUE: 3 views of the left breast were obtained. FINDINGS: Scattered fibroglandular densities of the left breast. Prior postoperative changes LEFT breast lumpec laci with parenchymal fibrosis. Treatment related changes LEFT breast. Area of pain indicated with a marker. Normal underlying parenchymal tissue in this area. Ultrasound is pending. ULTRASOUND BREAST LEFT TECHNIQUE: Ultrasound left breast focused area of concern. CLINICAL INFORMATION: nodule/thickness at 9 o'clock position left breast FINDINGS: Ultrasound LEFT breast area of concern at the 9 o'clock position. Normal underlying parenchymal tissu e. Incidental intramammary lymph node measuring 9 mm at the 9 o'clock position 5 cm from the nipple. No suspicious findings to target for biopsy. US/US breast LT limited* [id number] IMPRESSION: DENSITY: There are scattered areas of fibroglandular density. BI-RADS: 2 - Benign. FOLLOW UP: 1 Year Follow-up Recommend return to annual diagnostic mammography.
[2024-10-29 11:24] LABS: Basophils % 0.3 %; Eosinophils # 0.3 10^3/uL (0.0-0.8); Eosinophils % 3.9 %; Hematocrit 49.6 % (36-47); Lymphocytes # 1.1 10^3/uL (0.8-4.8); Mean Corpuscular Hemoglobin 27.8 pg (27-33); Mean Corpuscular Volume 89.7 fl (85-98); Monocytes # 0.5 10^3/uL (0.2-0.9); Neutrophils % 71.4 %; Nucleated Red Blood Cells % 0 %; Platelet Count 201 10^3/cmm (157-399); Red Blood Count 5.53 10^6/uL (3.85-5.65); Red Cell Distribution Width 15.2 % (12.1-15.1); White Blood Count 6.73 10^3/uL (3.29-11.43)
[2024-10-29 11:47] LABS: Alanine Aminotransferase 12 U/L (0-33); Albumin Level 3.9 g/dL (3.5-5.2); Alkaline Phosphatase 97 U/L (35-105); Anion Gap 12.5 (5-19); Aspartate Amino Transferase 12 U/L (0-32); Blood Urea Nitrogen 22 mg/dL (6-20); Calcium 9.2 mg/dL (8.5-10.5); Carbon Dioxide 28 mmol/L (22-29); Chloride 106 mmol/L (98-107); Globulin 2.4 g/dL (1.3-4.6); Glomerular Filtration Rate 86.9 mL/min (90-130); Glucose 177 mg/dL (65-115); Osmolality Calculated 302 mOsm/kg (285-295); Potassium 4.5 mmol/L (3.5-5.1); Sodium 142 mmol/L (136-145); Total Bilirubin 0.4 mg/dL (0.15-1.2); Total Protein 6.3 g/dL (6.6-8.7)
[2024-10-29 13:46] LABS: Estmated Average Glucose 163; Hemoglobin A1C 7.3 % (4.0-6.0)
[2024-10-29] MEDS: lidocaine 1% INJ 20 mL SUBCUT (14:27)
[2024-10-29] MEDS: goserelin acetate 3.6 mg Implant SUBCUT (14:42)
== END 2024-11-01 23:59 | disposition home or self-care (01) ==
PROVIDERS: Nurse Practitioner; PCP Nurse Practitioner; Visit Provider Internal Medicine
DX: C50.412 Malignant neoplasm of upper-outer quadrant of left female breast (principal); Z53.9 Procedure and treatment not carried out, unspecified reason; Z17.0 Estrogen receptor positive status [ER+]; E11.9 Type 2 diabetes mellitus without complications; Z79.818 Long term (current) use of other agents affecting estrogen receptors and estrogen levels; Z79.899 Other long term (current) drug therapy
CPT/HCPCS: 36415; 76642; 77061; 80053; 83036; 85025; 96372; 96402; 99214; G0279; J9202

== ENCOUNTER 2024-11-28 13:18 | Oncology outpatient (recurring) (ONCR) | payer MEDICAID, SELFPAY ==
[2024-11-28] MEDS: lidocaine 1% INJ 20 mL SUBCUT (15:02)
[2024-11-28] MEDS: goserelin acetate 3.6 mg Implant SUBCUT (15:19)
== END 2024-11-29 23:59 | disposition home or self-care (01) ==
LOC: ONCMED 13:18
PROVIDERS: PCP Nurse Practitioner; Visit Provider Internal Medicine
DX: C50.412 Malignant neoplasm of upper-outer quadrant of left female breast (principal); M81.0 Age-related osteoporosis without current pathological fracture; Z79.818 Long term (current) use of other agents affecting estrogen receptors and estrogen levels
CPT/HCPCS: 96372; 96402; J9202

== ENCOUNTER 2024-12-26 13:55 | Oncology outpatient (recurring) (ONCR) | payer MEDICAID, SELFPAY ==
[2024-12-26] MEDS: lidocaine 1% INJ 20 mL SUBCUT (14:30)
[2024-12-26] MEDS: goserelin acetate 3.6 mg Implant SUBCUT (14:34)
== END 2024-12-30 23:59 | disposition home or self-care (01) ==
LOC: ONCMED 13:56
PROVIDERS: PCP Nurse Practitioner; Visit Provider Internal Medicine
DX: Z51.11 Encounter for antineoplastic chemotherapy (principal); C50.412 Malignant neoplasm of upper-outer quadrant of left female breast; Z79.818 Long term (current) use of other agents affecting estrogen receptors and estrogen levels
CPT/HCPCS: 96372; 96402; J9202; J9999

== ENCOUNTER → 2025-01-20 15:15 | Outpatient (BNVA) | payer MEDICAID, SELFPAY | PROVIDERS: PCP Nurse Practitioner; Visit Provider Nurse Practitioner | DX: E11.65 Type 2 diabetes mellitus with hyperglycemia (principal); Z79.4 Long term (current) use of insulin | CPT/HCPCS: 80053; 80061; 83036; 84443 ==

== ENCOUNTER 2025-01-23 11:45 | Oncology outpatient (recurring) (ONCR) | payer MEDICAID, SELFPAY ==
--- NOTE | 2025-01-06 12:45 | MM_ITS ---
WS: [id number] BILATERAL 3D TOMOSYNTHESIS DIGITAL DIAGNOSTIC MAMMOGRAPHY WITH CAD CLINICAL INFORMATION: surveillance HISTORY: LEFT breast cancer COMPARISON: 10/24/2024 TECHNIQUE: Bilateral CC, MLO, and ML views. FINDINGS: Scattered fibroglandular densities bilaterally. Prior postoperative changes lumpectomy LEFT breast with parenchymal fibrosis. Treatment-related changes LEFT breast. Tiny punctate calcifications. Skin calcifications. No suspicious focal mass, asymmetry, calcifications, or architectural distortion. No evidence of malignancy. MM/MM diag tomosynthesis [id number] IMPRESSION: DENSITY: There are scattered areas of fibroglandular density. BI-RADS: 2 - Benign. FOLLOW UP: 1 Year Follow-up Recommend return to annual diagnostic mammography.
[2025-01-23 12:34] LABS: Basophils % 0.6 %; Eosinophils # 0.5 10^3/uL (0.0-0.8); Hematocrit 51.1 % (36-47); Lymphocytes % 14.3 %; Mean Corpuscular HGB Conc 30.7 g/dL (30-55); Mean Corpuscular Hemoglobin 27.8 pg (27-33); Mean Corpuscular Volume 90.4 fl (85-98); Mean Platelet Volume 12.7 fL (7.4-10.4); Monocytes # 0.5 10^3/uL (0.2-0.9); Monocytes % 7.2 %; Neutrophils # 5.11 10^3/uL (1.8-7.7); Neutrophils % 70.3 %; Nucleated Red Blood Cells % 0 %; Platelet Count 170 10^3/cmm (157-399); Red Blood Count 5.65 10^6/uL (3.85-5.65); Red Cell Distribution Width 14.7 % (12.1-15.1); White Blood Count 7.26 10^3/uL (3.29-11.43)
[2025-01-23 12:55] LABS: Alanine Aminotransferase 13 U/L (0-33); Albumin Level 4.1 g/dL (3.5-5.2); Alkaline Phosphatase 111 U/L (35-105); Anion Gap 16.1 (5-19); Aspartate Amino Transferase 10 U/L (0-32); Blood Urea Nitrogen 20 mg/dL (6-20); Calcium 9.3 mg/dL (8.5-10.5); Carbon Dioxide 24 mmol/L (22-29); Chloride 107 mmol/L (98-107); Creatinine Clr Calc Pharmacy 81.9451; Globulin 2.2 g/dL (1.3-4.6); Glomerular Filtration Rate 86.6 mL/min (90-130); Glucose 199 mg/dL (65-115); Osmolality Calculated 304 mOsm/kg (285-295); Potassium 4.1 mmol/L (3.5-5.1); Sodium 143 mmol/L (136-145); Total Bilirubin 0.3 mg/dL (0.15-1.2); Total Protein 6.3 g/dL (6.6-8.7)
[2025-01-23] MEDS: lidocaine 1% INJ 20 mL SUBCUT (14:06)
[2025-01-23] MEDS: denosumab 60 mg SDV SUBCUT (14:10)
[2025-01-23] MEDS: goserelin acetate 3.6 mg Implant SUBCUT (14:18)
== END 2025-01-29 23:59 | disposition home or self-care (01) ==
PROVIDERS: Nurse Practitioner Family; PCP Nurse Practitioner; Visit Provider Internal Medicine
DX: Z53.9 Procedure and treatment not carried out, unspecified reason (principal); Z51.11 Encounter for antineoplastic chemotherapy; C50.412 Malignant neoplasm of upper-outer quadrant of left female breast; Z17.0 Estrogen receptor positive status [ER+]; R03.0 Elevated blood-pressure reading, without diagnosis of hypertension; Z79.818 Long term (current) use of other agents affecting estrogen receptors and estrogen levels
CPT/HCPCS: 36415; 77062; 80053; 85025; 96372; 96402; 99214; G0279; J0897; J9202; J9999

== ENCOUNTER 2025-02-20 14:45 | Oncology outpatient (recurring) (ONCR) | payer MEDICAID, SELFPAY ==
[2025-02-20 15:15] VITALS: BP 137/86; PULSE 70; RESP 16; TEMP 36.8; O2SAT 94
[2025-02-20] MEDS: lidocaine 1% INJ 20 mL SUBCUT (15:48)
[2025-02-20] MEDS: goserelin acetate 3.6 mg Implant SUBCUT (16:00)
== END 2025-03-01 23:59 | disposition home or self-care (01) ==
LOC: ONCMED 14:46
PROVIDERS: PCP Nurse Practitioner; Visit Provider Internal Medicine
DX: Z51.11 Encounter for antineoplastic chemotherapy (principal); C50.412 Malignant neoplasm of upper-outer quadrant of left female breast; Z79.818 Long term (current) use of other agents affecting estrogen receptors and estrogen levels; Z79.899 Other long term (current) drug therapy; M81.0 Age-related osteoporosis without current pathological fracture
CPT/HCPCS: 96372; 96402; J9202; J9999

== ENCOUNTER 2025-03-27 13:56 | Oncology outpatient (recurring) (ONCR) | payer MEDICAID, SELFPAY ==
[2025-03-27] MEDS: lidocaine 1% INJ 20 mL SUBCUT (14:47)
[2025-03-27] MEDS: goserelin acetate 3.6 mg Implant SUBCUT (14:59)
== END 2025-03-31 23:59 | disposition home or self-care (01) ==
LOC: ONCMED 14:10
PROVIDERS: PCP Nurse Practitioner; Visit Provider Internal Medicine
DX: Z51.11 Encounter for antineoplastic chemotherapy (principal); C50.412 Malignant neoplasm of upper-outer quadrant of left female breast; Z79.818 Long term (current) use of other agents affecting estrogen receptors and estrogen levels
CPT/HCPCS: 96372; 96401; J9202; J9999

== ENCOUNTER → 2025-04-23 10:01 | Outpatient (BNVA) | payer MEDICAID, SELFPAY | PROVIDERS: PCP Nurse Practitioner; Visit Provider Nurse Practitioner | DX: C50.412 Malignant neoplasm of upper-outer quadrant of left female breast (principal); E11.65 Type 2 diabetes mellitus with hyperglycemia; Z79.4 Long term (current) use of insulin | CPT/HCPCS: 80053; 80061; 83036; 85025 ==

== ENCOUNTER 2025-04-24 13:28 | Oncology outpatient (recurring) (ONCR) | payer MEDICAID, SELFPAY ==
[2025-04-24 14:06] LABS: Hematocrit 50.0 % (36-47); Hemoglobin 15.70 g/dL (11.27-16.99); Mean Corpuscular HGB Conc 31.4 g/dL (30-55); Mean Corpuscular Hemoglobin 27.9 pg (27-33); Mean Corpuscular Volume 89.0 fl (85-98); Nucleated Red Blood Cells % 0 %; Platelet Count 227 10^3/cmm (157-399); Red Blood Count 5.62 10^6/uL (3.85-5.65); White Blood Count 7.89 10^3/uL (3.29-11.43)
[2025-04-24 14:12] LABS: Alanine Aminotransferase 23 U/L (0-33); Albumin Level 4.0 g/dL (3.5-5.2); Alkaline Phosphatase 103 U/L (35-105); Anion Gap 18.3 (5-19); Aspartate Amino Transferase 14 U/L (0-32); Blood Urea Nitrogen 21 mg/dL (6-20); Calcium 9.4 mg/dL (8.5-10.5); Carbon Dioxide 22 mmol/L (22-29); Chloride 106 mmol/L (98-107); Creatinine Clr Calc Pharmacy 96.7080; Globulin 2.5 g/dL (1.3-4.6); Glucose 210 mg/dL (65-115); Osmolality Calculated 303 mOsm/kg (285-295); Potassium 4.3 mmol/L (3.5-5.1); Sodium 142 mmol/L (136-145); Total Protein 6.5 g/dL (6.6-8.7)
[2025-04-24] MEDS: lidocaine 1% INJ 20 mL SUBCUT (15:52)
[2025-04-24 16:51] LABS: Follicle Stimulating Hormone 3.9 mIU/mL
== END 2025-05-01 23:59 | disposition home or self-care (01) ==
PROVIDERS: Nurse Practitioner Family; PCP Nurse Practitioner; Visit Provider Internal Medicine
DX: Z51.11 Encounter for antineoplastic chemotherapy (principal); C50.412 Malignant neoplasm of upper-outer quadrant of left female breast; Z17.0 Estrogen receptor positive status [ER+]; Z79.818 Long term (current) use of other agents affecting estrogen receptors and estrogen levels; Z79.899 Other long term (current) drug therapy; Z92.3 Personal history of irradiation
CPT/HCPCS: 36415; 80053; 82670; 83001; 83002; 85025; 96372; 96402; 99213; J9202; J9999

== ENCOUNTER 2025-05-29 11:51 | Oncology outpatient (recurring) (ONCR) | payer MEDICAID, SELFPAY ==
[2025-05-29 12:16] LABS: Hematocrit 52.9 % (36-47); Hemoglobin 16.70 g/dL (11.27-16.99); Mean Corpuscular HGB Conc 31.6 g/dL (30-55); Mean Corpuscular Hemoglobin 28.2 pg (27-33); Mean Corpuscular Volume 89.4 fl (85-98); Nucleated Red Blood Cells % 0 %; Platelet Count 198 10^3/cmm (157-399); Red Blood Count 5.92 10^6/uL (3.85-5.65); White Blood Count 8.18 10^3/uL (3.29-11.43)
[2025-05-29 12:33] LABS: Alanine Aminotransferase 17 U/L (0-33); Albumin Level 4.1 g/dL (3.5-5.2); Alkaline Phosphatase 106 U/L (35-105); Anion Gap 17.3 (5-19); Aspartate Amino Transferase 11 U/L (0-32); Blood Urea Nitrogen 27 mg/dL (6-20); Calcium 9.4 mg/dL (8.5-10.5); Carbon Dioxide 22 mmol/L (22-29); Chloride 106 mmol/L (98-107); Globulin 2.4 g/dL (1.3-4.6); Glucose 162 mg/dL (65-115); Osmolality Calculated 301 mOsm/kg (285-295); Potassium 4.3 mmol/L (3.5-5.1); Sodium 141 mmol/L (136-145); Total Protein 6.5 g/dL (6.6-8.7)
[2025-05-29] MEDS: lidocaine 1% INJ 20 mL SUBCUT (14:22)
[2025-05-29 14:31] LABS: Glucose Urine UA Negative (Normal); Nitrate Urine Negative (Negative); Specific Gravity, Urine 1.023 (1.005-1.030)
[2025-05-29 14:50] VITALS: BP 121/78; PULSE 76; RESP 17; TEMP 36.6; O2SAT 94
== END 2025-06-01 23:59 | disposition home or self-care (01) ==
PROVIDERS: Internal Medicine; PCP Nurse Practitioner; Visit Provider Nurse Practitioner
DX: C50.412 Malignant neoplasm of upper-outer quadrant of left female breast (principal); E11.65 Type 2 diabetes mellitus with hyperglycemia; Z79.4 Long term (current) use of insulin; Z79.818 Long term (current) use of other agents affecting estrogen receptors and estrogen levels
CPT/HCPCS: 36415; 80053; 81001; 85025; 87077; 87086; 87186; 96372; 96402; 99214; J9202; J9999

== ENCOUNTER → 2025-06-18 13:36 | Outpatient (BNVA) | payer MEDICAID, SELFPAY | PROVIDERS: PCP Nurse Practitioner; Visit Provider Nurse Practitioner | DX: N39.0 Urinary tract infection, site not specified (principal) | CPT/HCPCS: 81000 ==

== ENCOUNTER 2025-06-26 11:12 | Oncology outpatient (recurring) (ONCR) | payer MEDICAID, SELFPAY ==
[2025-06-26 11:37] LABS: Hematocrit 51.9 % (36-47); Hemoglobin 15.80 g/dL (11.27-16.99); Mean Corpuscular HGB Conc 30.4 g/dL (30-55); Mean Corpuscular Hemoglobin 27.8 pg (27-33); Mean Corpuscular Volume 91.2 fl (85-98); Nucleated Red Blood Cells % 0 %; Platelet Count 190 10^3/cmm (157-399); Red Blood Count 5.69 10^6/uL (3.85-5.65); White Blood Count 7.66 10^3/uL (3.29-11.43)
[2025-06-26 11:53] LABS: Alanine Aminotransferase 17 U/L (0-33); Albumin Level 4.0 g/dL (3.5-5.2); Alkaline Phosphatase 99 U/L (35-105); Anion Gap 15.1 (5-19); Aspartate Amino Transferase 12 U/L (0-32); Blood Urea Nitrogen 28 mg/dL (6-20); Calcium 9.1 mg/dL (8.5-10.5); Carbon Dioxide 25 mmol/L (22-29); Chloride 106 mmol/L (98-107); Creatinine Clr Calc Pharmacy 82.4591; Globulin 2.1 g/dL (1.3-4.6); Glucose 243 mg/dL (65-115); Osmolality Calculated 308 mOsm/kg (285-295); Potassium 4.1 mmol/L (3.5-5.1); Sodium 142 mmol/L (136-145); Total Protein 6.1 g/dL (6.6-8.7)
[2025-06-26] MEDS: lidocaine 1% INJ 20 mL SUBCUT (12:30)
--- NOTE | 2025-06-26 13:16 | XR_ITS ---
WS: [id number] Exam: XR lumbar spine 2-3V* [id number] Date/Time of Exam: 06/26/2025 1:23 PM Reason For Exam: malignant neoplasm DLP: No fracture or malalignment. Osteopenia. Disc spaces are preserved. Posterior elements are intact. No destructive bone changes. XR/XR lumbar spine 2-3V* [id number] IMPRESSION: 1. No fracture or malalignment. Osteopenia.
--- NOTE | 2025-06-26 13:16 | XR_ITS ---
WS: [email or web address] Exam: XR KUB [id number] Date/Time of Exam: 06/26/2025 1:23 PM Reason For Exam: osteoporosis No bowel obstruction or free air. Constipation. No sign of organ enlargement. Bony structures are intact. XR/XR KUB [id number] IMPRESSION: 1. No acute abdominal process. Constipation.
== END 2025-07-01 23:59 | disposition home or self-care (01) ==
PROVIDERS: Nurse Practitioner; PCP Nurse Practitioner; Visit Provider Internal Medicine
DX: Z51.11 Encounter for antineoplastic chemotherapy (principal); C50.412 Malignant neoplasm of upper-outer quadrant of left female breast; Z17.0 Estrogen receptor positive status [ER+]; M81.0 Age-related osteoporosis without current pathological fracture; M85.80 Other specified disorders of bone density and structure, unspecified site; K59.00 Constipation, unspecified; Z79.818 Long term (current) use of other agents affecting estrogen receptors and estrogen levels; Z79.899 Other long term (current) drug therapy; Z92.3 Personal history of irradiation
CPT/HCPCS: 72100; 74018; 80053; 82306; 85025; 96372; 96402; 99215; J9202; J9999

== ENCOUNTER → 2025-07-15 16:29 | Outpatient (BNVA) | payer MEDICAID, SELFPAY | PROVIDERS: PCP Nurse Practitioner; Visit Provider Nurse Practitioner | DX: E11.65 Type 2 diabetes mellitus with hyperglycemia (principal); Z79.4 Long term (current) use of insulin | CPT/HCPCS: 80053; 83036 ==

== ENCOUNTER 2025-09-18 12:03 | Oncology outpatient (recurring) (ONCR) | payer MEDICAID, SELFPAY ==
[2025-09-18 12:51] LABS: Hematocrit 49.5 % (36-47); Hemoglobin 15.10 g/dL (11.27-16.99); Mean Corpuscular HGB Conc 30.5 g/dL (30-55); Mean Corpuscular Hemoglobin 27.5 pg (27-33); Mean Corpuscular Volume 90.0 fl (85-98); Nucleated Red Blood Cells % 0 %; Platelet Count 280 10^3/cmm (157-399); Red Blood Count 5.50 10^6/uL (3.85-5.65); White Blood Count 7.04 10^3/uL (3.29-11.43)
[2025-09-18 13:15] LABS: Alanine Aminotransferase 12 U/L (0-33); Albumin Level 3.8 g/dL (3.5-5.2); Alkaline Phosphatase 113 U/L (35-105); Anion Gap 17.7 (5-19); Aspartate Amino Transferase 16 U/L (0-32); Blood Urea Nitrogen 29 mg/dL (6-20); Calcium 9.4 mg/dL (8.5-10.5); Carbon Dioxide 24 mmol/L (22-29); Chloride 105 mmol/L (98-107); Globulin 2.4 g/dL (1.3-4.6); Glucose 210 mg/dL (65-115); Osmolality Calculated 306 mOsm/kg (285-295); Potassium 4.7 mmol/L (3.5-5.1); Sodium 142 mmol/L (136-145); Total Protein 6.2 g/dL (6.6-8.7)
[2025-09-18] MEDS: lidocaine 1% INJ 20 mL INTRADERMA (14:16)
[2025-09-18] MEDS: denosumab 60 mg SDV (Infusion Clinic Only) SUBCUT (14:19)
== END 2025-10-01 23:59 | disposition home or self-care (01) ==
PROVIDERS: Internal Medicine; Visit Provider Nurse Practitioner
DX: Z51.11 Encounter for antineoplastic chemotherapy (principal); C50.412 Malignant neoplasm of upper-outer quadrant of left female breast; Z17.0 Estrogen receptor positive status [ER+]; M81.0 Age-related osteoporosis without current pathological fracture; M85.80 Other specified disorders of bone density and structure, unspecified site; K59.00 Constipation, unspecified; Z79.818 Long term (current) use of other agents affecting estrogen receptors and estrogen levels; Z79.899 Other long term (current) drug therapy; Z92.3 Personal history of irradiation
CPT/HCPCS: 80053; 82306; 85025; 96372; 96402; 99214; J0897; J9202; J9999

== ENCOUNTER 2025-10-01 13:13 | Outpatient (RCR) | payer MEDICAID, SELFPAY | END 2025-10-01 23:59 | disposition home or self-care (01) | LOC: SST 13:13 | PROVIDERS: Visit Provider Psychiatry & Neurology Neurology | DX: G20.C Parkinsonism, unspecified (principal); R47.82 Fluency disorder in conditions classified elsewhere | CPT/HCPCS: 92524 ==